=== PATIENT | male | born 1950 | race Caucasian/White ===

== ENCOUNTER 2019-12-04 02:57 | Emergency (ER) | payer OTHER, SELFPAY ==
[2019-12-04] VITALS (15 sets, daily range): BP systolic 101–168; BP diastolic 53–88; PULSE 66–115; RESP 12–22; TEMP 35.7–36.6; O2SAT 89–99
--- NOTE | ~2019-12-04 | CT_ITS ---
EXAMINATION: CT brain wo con EXAM DATE: 12/04/2019 04:51 INDICATION: Unresponsive, temporary change in awareness. TECHNIQUE: Spiral CT of the head was performed without contrast. Axial, coronal and sagittal images were reviewed. The dose-length product (DLP) for this examination was 605.33 mGy-cm. The exposure w as tailored according to patient size, and iterative reconstruction (ASIR) was used as additional dos e reduction technique. There is no prior study for comparison. FINDINGS: There is no acute intraparenchymal hemorrhage. No evidence of intraparenchymal brain mass lesion. No evidence of acute infarction. Please note that initial head CT has limited sensitivity f or small or acute infarctions. There is mild periventricular and subcortical hypodensity, nonspecific but probably related to small vessel ischemic disease. There is mild prominence of the sulci and v entricles related to cerebral atrophy. There is intracranial carotid arteriosclerosis. There are n o extra-axial collections. There is no mass effect or midline shift. The orbits are unremarkable. Soft tissue is unremarkable. The visualized sinuses and mastoid air cells are well aerated. IMPRESSION: 1. No acute intracranial findings. 2. Chronic age related findings. Reviewed, dictated and finalized at location A.
--- NOTE | ~2019-12-04 | XR_ITS ---
EXAMINATION: XR chest 1V portable EXAM DATE: 12/04/2019 04:51 INDICATION: Altered mental status. TECHNIQUE: Portable AP frontal chest x-ray was obtained. There is no prior study for comparison. FINDINGS: The lungs are clear. There are no pleural effusions. Cardiac silhouette is prominent but magnified on this AP technique. Also widened appearance to the superior mediastinum which is nonspec ific but can be seen with mediastinal fat, goiter or other anterior mediastinal mass, lymphadenopathy or aneurysm. There is no pneumothorax suspected. The bones and soft tissues are unremarkable. IMPRESSION: Widened superior mediastinum, nonspecific. Consider follow-up CT Reviewed, dictated and finalized at location A.
--- NOTE | 2019-12-04 03:02 | ECG_ITS ---
Measurements Intervals [place] Rate: 115 P: -9 UT: 163 QRS: -49 QRSD: 113 T: 69 QT: 336 QTc: 466 Interpretive Statements SINUS TACHYCARDIA LEFT ANTERIOR FASCICULAR BLOCK CANNOT RULE OUT SEPTAL INFARCT, AGE INDETERMINATE BORDERLINE ST-T WAVE ABNORMALITY- HIGH LATERAL LEADS BASELINE ARTIFACT- I, AVR ABNORMAL ECG Electronically Signed On 12-04-2019 10:35:[address] D.O.
[2019-12-04 03:16] LABS: Glucose Point of Care 141 (65-105)
[2019-12-04 03:31] LABS: Base Excess ABG -7.3 mmol/L (0-2); HCO3 ABG 18.5 mmol/L (23-29); Oxygen Content ABG 17.3 %vol (16.0-22.0); Oxygen Saturation ABG 97.8 % (95-97); Oxyhemoglobin 92.9 % (94-100); PCO2 ABG 38.8 mmHg (35-45); PO2 ABG 137.6 mmHg (75-85); Total Hemoglobin 13.1 g/dL
[2019-12-04 03:35] LABS: Basophils Absolute Auto 0.04 K/mm3 (0.00-0.10); Basophils Percent Auto 0.5 % (0.0-1.0); Eosinophils Absolute Auto 0.38 K/mm3 (0.02-0.50); Eosinophils Percent Auto 5.2 % (1.0-6.0); Hematocrit 34.8 % (37.0-46.0); Hemoglobin 11.9 g/dL (12.4-15.3); Immature Granulocyte Absolute 0.04 K/mm3 (0.00-0.00); Immature Granulocyte Percent A 0.5 % (0.0-0.0); Lymphocytes Absolute Auto 2.19 K/mm3 (1.10-4.50); Lymphocytes Percent Auto 29.8 % (18.0-42.0); Mean Corpuscular HGB Conc 34.2 g/dL (32.0-36.0); Mean Corpuscular Hemoglobin 32.1 pg (27.0-31.0); Mean Corpuscular Volume 93.8 fL (78.0-102.0); Mean Platelet Volume 8.5 fl (8.7-11.0); Monocytes Absolute Auto 0.55 K/mm3 (0.10-0.90); Monocytes Percent Auto 7.5 % (2.0-11.0); Neutrophils Absolute Auto 4.2 K/mm3 (1.7-7.2); Neutrophils Percent Auto 56.5 % (50.0-70.0); Platelet Count Result 184 K/mm3 (150-420); Red Blood Count 3.71 M/mm3 (4.70-6.10); Red Cell Distribution Width 12.1 % (11.6-14.4); White Blood Count 7.4 K/mm3 (4.8-10.8)
[2019-12-04 03:37] LABS: Modified Allen's Test Pass; Site Drawn RIGHT BRACHIAL
[2019-12-04 03:38] LABS: Device AMBU BAG
[2019-12-04 03:47] LABS: Appearance Urine Clear (Clear); Bilirubin Urine Negative (Negative); Color Urine Yellow (Yellow); Glucose Urine UA Negative (Negative); Ketones Urine Negative (Negative); Leukocyte Esterase Ur Negative LEU/UL (Negative); Nitrate Urine Negative (Negative); Protein Urine Negative (Negative); Specific Grav Ur <= 1.005 (1.010-1.020); Urobilinogen Urine 0.2 mg/dL (0.2-1.0)
[2019-12-04 03:48] LABS: INR 1.1; Partial Thromboplastin Time 29.2 SEC (22.3-31.6); Prothrombin Time 11.6 Seconds (9.64-11.0)
[2019-12-04 03:51] LABS: Acetaminophen 2 ug/mL (10-30); Alanine Aminotransferase 24 U/L (16-63); Albumin Level 3.4 g/dL (3.4-5.0); Alkaline Phosphatase 55 U/L (46-116); Anion Gap 11 mmol/L (8-16); Aspartate Amino Transferase 18 U/L (15-37); Bilirubin,Total 0.4 mg/dL (0.00-1.00); Blood Urea Nitrogen 13 mg/dL (7-18); Calcium 8.3 mg/dL (8.5-10.1); Carbon Dioxide 25 mmol/L (21-32); Chloride 98 mmol/L (98-108); Creatine Kinase 98 U/L (39-308); Estimated CRCL calculation 74 ml/min; Estimated Glomerular Filt Rate > 60; Ethanol 119 mg/dL (0-6); Glucose 155 mg/dL (70-99); Magnesium 1.1 mg/dL (1.8-2.4); Osmolality Calculated 281 mOsm/kg (285-295); Phosphorus 4.9 mg/dL (2.6-4.7); Salicylate 3.2 mg/dL (2.8-20.0); Sodium 134 mmol/L (136-145); Total Protein 6.3 g/dL (6.4-8.2)
[2019-12-04 03:52] LABS: Ammonia < 10 umol/L (11-32)
[2019-12-04 03:53] LABS: Add Urine Microscopic? YES; Bacteria Urine None seen /hpf; Blood Urine Trace-Intact (Negative); RBC Urine 0-2 /hpf (0-2); Squamous Epithelial Cell Urine None seen /hpf (Few); WBC Urine 0-3 /hpf (0-3)
[2019-12-04] MEDS: SODIUM CHLORIDE 0.9% IV 1,000 ML 999 ML IV CONT ×2 (03:54→04:44)
[2019-12-04 03:57] LABS: Lactic Acid Reflex 4.3 mmol/L (0.4-2.0)
[2019-12-04 04:03] LABS: Amphetamine Screen Urine Negative (Negative); Barbiturate Screen Urine Negative (Negative); Benzodiazepines Screen Urine Negative (Negative); Cannabinoid Screen Urine Positive (Negative); Cocaine Screen Urine Negative (Negative); Methadone Screen Urine Negative (Negative); Opiate Screen Urine Negative (Negative); Phencyclidine Screen Urine Negative (Negative)
--- NOTE | 2019-12-04 04:19 | ED.OVERDOSE ---
HPI - Overdose General Chief Complaint: Overdose Stated Complaint: overdose Time Seen by Provider: 12/04/19 03:02 Source: patient Mode of arrival: EMS Limitations: altered mental status History of Present Illness HPI Narrative: 69-year-old man with a history of chronic back pain, chronic headaches, depression, and suicidality brought to the emergency department by EMS after his saw him collapse to the floor. Came to bed after having smoked marijuana in the morning and drank alcohol most of the day telling her that he had taken 25 pills. He did not identify which ones. He had slurred speech and tried to get up and fell on the floor. She does not know what medications he took. complaint: intentional overdose Onset (ago): hour(s) Intent: suicide attempt How Overdose Was Discovered: family/friend present at time Context: Intentional Overdose: drug/ETOH problems Context: Accidental Overdose: was drinking then took pills Associated symptoms: depression Treatments Prior to Arrival: narcan (2 mg) and IV fluids Related Data Home Medications Medication Instructions Recorded Confirmed amlodipine 10 mg PO DAILY 12/04/19 12/04/19 atorvastatin 40 mg PO DAILY 12/04/19 12/04/19 cholecalciferol (vitamin D3) 50 mcg PO DAILY 12/04/19 12/04/19 [Vitamin D3] desmopressin 0.1 mg PO BID 12/04/19 12/04/19 gabapentin 300 mg PO TID 12/04/19 12/04/19 insulin aspart U-100 [Novolog 28 unit SUBCUT BIDWMEAL 12/04/19 12/04/19 Flexpen U-100 Insulin] insulin glargine [Lantus U-100 35 unit SUBCUT DAILY 12/04/19 12/04/19 Insulin] lisinopril 20 mg PO DAILY 12/04/19 12/04/19 melatonin 3 mg PO HS PRN 12/04/19 12/04/19 metformin 1,000 mg PO BID 12/04/19 12/04/19 metoprolol tartrate 25 mg PO BID 12/04/19 12/04/19 quetiapine 100 mg PO HS 12/04/19 12/04/19 tamsulosin 0.4 mg PO DAILY 12/04/19 12/04/19 trazodone 100 mg HS PRN 12/04/19 12/04/19 venlafaxine 75 mg PO DAILY 12/04/19 12/04/19 Allergies Allergy/AdvReac Type Severity Reaction Status Date / Time No Known Allergies Allergy Verified 12/04/19 03:15 Review of Systems Review of Systems: ROS unobtainable: Yes unobtainable due to mental status [facility] Social History Social History (Updated 12/04/19 @ 05:17 by Jose Yoon MD) Smoking status: Former smoker Alcohol intake: current Substance use: current Substance use type: marijuana Living arrangements: with family Occupation/Education: occupation Exam Const: General: no acute distress Nutritional Appearance: obese Limitations: altered mental status Other: GCS 8 on arrival. Snoring respirations HENMT: Head: normal to inspection Ears: external ears normal, TM's normal bilaterally and EAC's normal Face and sinus: normal facial exam Mouth: Yes moist mucous membranes Throat: posterior oropharynx normal Eyes: Conjunctivae: conjunctivae normal Pupils: Equal, round and reactive pupils present EOM: EOMs intact bilaterally Neck: Neck: normal visual inspection and no lymphadenopathy Chest: Chest palpation & inspection: normal inspection of the chest Resp: Effort & Inspection: normal respiratory effort and labored (snoring) Auscultation: clear to auscultation bilaterally, no rales, no rhonchi and no wheezes Cardio: Rate: tachycardic Rhythm: regular rhythm Heart sounds: no murmurs GI: GI Palp: Yes Soft to palpation, No Tenderness to palpation present (GI), No Guarding due to palpation present (GI) and No Palpable mass present Skin: General skin exam: no jaundice and pallor Rashes: rash noted Neuro: General: patient oriented x3 and moves all extremities Other: Does not respond to voice but but withdraws from local pain. Extrem: General: normal to inspection and no clubbing, cyanosis or edema Course Course Emergency Course: 0600: Discussed findings with Dr. Vidal Rader, Hospitalist, General acute hospital. No telemetry beds available at present. Will discuss with Admin and they will call when bed is availab
--- NOTE | 2019-12-04 05:19 | PC.NURSE ---
Call placed to [facility] for pt[facility].
[2019-12-04 06:00] LABS: Troponin I 0.02 ng/mL (0.00-0.056)
--- NOTE | 2019-12-04 06:17 | PC.NURSE ---
ERP spoke c Dr. Rader at [facility], no tele beds available at this time, will await call back later if bed becomes available. ERP orders obtained for ER Hold until bed available for transfer. Call placed to 2nd floor for bed for ED Hold placement. Pt. sleeping, mumbles at times, VSS, informed on POC.
[2019-12-04 06:33] LABS: Reflex Lactic Acid Yes or No Add Lactic
[2019-12-04] MEDS: SODIUM CHLORIDE 0.9% IV 1,000 ML 150 ML IV CONT ×2 (06:33→13:09)
[2019-12-04] MEDS: KCL 20 MEQ/SW 100 ML 100 ML 50 MEQ IVPB (06:33)
[2019-12-04 07:57] LABS: Glucose Point of Care 141 (65-105)
[2019-12-04] MEDS: PANTOPRAZOLE SODIUM IV 40 MG VIAL IV PUSH (08:51)
[2019-12-04 09:13] LABS: Troponin I 0.02 ng/mL (0.00-0.056)
[2019-12-04 09:17] LABS: Lactic Acid 3.4 mmol/L (0.4-2.0)
--- NOTE | 2019-12-04 10:17 | PC.NURSE ---
1015 Call [facility] about bed availability in ICU. Talked to 3 people only to keep getting transferred. Finally had to leave message with Denise utilization review intake and hopefully she is working on bed placement.
--- NOTE | 2019-12-04 10:52 | PC.NURSE ---
pt in bed on left side, snoring. arouses easily. at bedside. o2 continues, ivf infusing as ordered. resp even and unlabored. able to follwing simple directions such as squeeze my hands when awakened. pt c/o dry throat. no pain
[2019-12-04 11:55] LABS: Glucose Point of Care 115 (65-105)
--- NOTE | 2019-12-04 12:27 | PC.NURSE ---
1230 Patient waking up more and conversing. here at bedside put on his CPAP machine. O2 taken off, but sats dip in to mid 80's. Oxygen @ 2l/minn.c. bled into cpap. Patient assisted with turning and repositioning in bed. Reports he took handful of quetiapine fumarate. Doses off to sleep easily, but awaken with touch and voice. States he is thirsty. Told patient and will have to get new orders for po status and IV orders.
[2019-12-04 12:37] LABS: Troponin I < 0.02 ng/mL (0.00-0.056)
--- NOTE | 2019-12-04 13:43 | PC.NURSE ---
pt more alert, able to verbalize needs. arouses easily but remains somewhat droawsy. reports to RN that he took multiple seroquel tabs last night in an attempt to kill himself. remains at bedside. she brought cpap from home and pt is wearing with 2L o2 bled in. Dr. barrios gave ok for ice chips, pt provided with some and was able to tolerate small spoon fulls of ice chips.
--- NOTE | 2019-12-04 13:43 | PC.NURSE ---
[id number] Called [facility], Utilization review/admit working on admission in the order of request. No bed availability at this time. Dr. Edwards make rounds on patient and was notified of what NEREIDA said. No new orders received.
[2019-12-04 17:08] LABS: Glucose Point of Care 124 (65-105)
--- NOTE | 2019-12-04 17:40 | PC.NURSE ---
pt has cpap back on and appears to be sleeping, in room, she will stay until 1999 then a sitter will be needed, charge nurse aware
[2019-12-04 21:28] LABS: Glucose Point of Care 137 (65-105)
--- NOTE | 2019-12-04 21:42 | PC.NURSE ---
pt appears to be sleeping, sitter in room, to return at 10am, cpap on, 02 reattached, iv running, simona to gravity
--- NOTE | 2019-12-04 23:59 | PC.NURSE ---
Patient resting in bed. Sitter at bedside. Patient wakes to name. He is alert and oriented to person and time. He is aware that he is in the hospital but he could not name the hospital or state which town he is in. He is able to follow directions this time.
[2019-12-05] VITALS (11 sets, daily range): BP systolic 120–169; BP diastolic 68–95; PULSE 65–92; RESP 14–20; TEMP 35.7–36.6; O2SAT 91–100
[2019-12-05] MEDS: SODIUM CHLORIDE 0.9% IV 1,000 ML 150 ML IV CONT ×2 (02:13→13:16)
--- NOTE | 2019-12-05 04:10 | PC.NURSE ---
Patient resting in bed. He reports back and leg pain but he refuses PRN Tylenol. Sitter remains at bedside.
--- NOTE | 2019-12-05 06:37 | PC.NURSE ---
Called the [facility] to find out if any beds were available for pt. Mendoza, the ER nurse, said we needed to talk to Celina Smith who is the admissions/utilization nurse for psych patients. Her phone number is [phone] and she can be contacted after 07:30.
--- NOTE | 2019-12-05 07:03 | PC.NURSE ---
BHARGAV Oliver from ER called regarding pt's transfer status. She said that Dr. Edwards downgraded pt from needing a telemetry bed to needing a med/psych bed at the [facility].
--- NOTE | 2019-12-05 07:12 | PC.NURSE ---
Call placed to [facility]. Pts. bed status has changed per ERP order and no longer need telemetry bed. Call placed for new bed for medical psych if available. Will call back in 30 min. to speak c intake psychologist clinical.
[2019-12-05 08:17] LABS: Glucose Point of Care 117 (65-105)
--- NOTE | 2019-12-05 08:31 | PC.NURSE ---
Call back from Celina at [facility] for psych inpt. admission. Orders received about admission process and ERP notified and call placed/transfer to 2nd floor nrsg. to speak c Charge nurse Sherrie.
[2019-12-05 09:23] LABS: Alanine Aminotransferase 27 U/L (16-63); Albumin Level 3.9 g/dL (3.4-5.0); Alkaline Phosphatase 67 U/L (46-116); Anion Gap 9 mmol/L (8-16); Aspartate Amino Transferase 18 U/L (15-37); Bilirubin,Total 1.1 mg/dL (0.00-1.00); Blood Urea Nitrogen 7 mg/dL (7-18); Calcium 8.6 mg/dL (8.5-10.1); Carbon Dioxide 29 mmol/L (21-32); Chloride 103 mmol/L (98-108); Estimated CRCL calculation 83 ml/min; Estimated Glomerular Filt Rate > 60; Glucose 131 mg/dL (70-99); Osmolality Calculated 292 mOsm/kg (285-295); Potassium 3.2 mmol/L (3.5-5.1); Sodium 141 mmol/L (136-145); Total Protein 7.5 g/dL (6.4-8.2)
[2019-12-05] MEDS: PANTOPRAZOLE SODIUM IV 40 MG VIAL IV PUSH (09:44)
--- NOTE | 2019-12-05 09:48 | PC.NURSE ---
Patient ate 100% of breakfast tray
--- NOTE | 2019-12-05 10:15 | PC.NURSE ---
Dr Pak Notified of patients current lab values. Awaiting further orders.
[2019-12-05] MEDS: KCL 20 MEQ/SW 100 ML 100 ML 50 MEQ IVPB (11:33)
[2019-12-05 11:50] LABS: Glucose Point of Care 155 (65-105)
--- NOTE | 2019-12-05 11:58 | PC.NURSE ---
Magnesium sulfate infusion completed
[2019-12-05] MEDS: MAGNESIUM SULF 2 GM/WATER 50ML 2 GM/50 ML BAG IVPB (14:45)
--- NOTE | 2019-12-05 15:02 | PHAR ---
12/06/19 - VERIFIED PT.'S OWN NOVOLOG FLEXPEN. TLS
[2019-12-05 16:50] LABS: Glucose Point of Care 110 (65-105)
[2019-12-05] MEDS: GABAPENTIN 300 MG CAPSULE PO (17:16)
[2019-12-05] MEDS: metFORMIN HCL 500 MG TABLET 1000 MG PO (17:16)
--- NOTE | 2019-12-05 18:22 | PC.NURSE ---
notified that patient's stated patient does not use Novolog pen. N.O. to d/c Novolog and continue sliding scale.
[2019-12-05] MEDS: METOPROLOL TARTRATE 25 MG TABLET PO (21:31)
[2019-12-05 21:35] LABS: Glucose Point of Care 214 (65-105)
[2019-12-05] MEDS: traZODone HCL 50 MG TABLET 100 MG BY MOUTH (23:41)
[2019-12-06] VITALS (10 sets, daily range): BP systolic 123–170; BP diastolic 76–94; PULSE 64–80; RESP 14–18; TEMP 35.5–36.6; O2SAT 93–97
--- NOTE | 2019-12-06 00:04 | PC.NURSE ---
Patient requested medication to help him sleep
--- NOTE | 2019-12-06 01:43 | PC.NURSE ---
Patient up to use toilet. Friendly and appropriate. Sitter at bedside.
--- NOTE | 2019-12-06 05:04 | PC.NURSE ---
Patient alert and oriented x4. awake and watching television. Conversation appropriate. Up to toilet without assistance.
--- NOTE | 2019-12-06 07:15 | PC.NURSE ---
Awake in bed, cooperative, jarvis patent and draining, would like removed today, will advise ER doctor, saline lock to right hand in place, denies needs, no pain, conversive, sitter at the bedside, lungs clear, no cough noted, cpap off at this time, watching TV
[2019-12-06 07:28] LABS: Glucose Point of Care 120 (65-105)
--- NOTE | 2019-12-06 08:24 | PC.NURSE ---
Roy discontinued, tolerated well, advised would need to void in urinal so we can monitor out put, sitter at the bedside
[2019-12-06 09:22] LABS: Anion Gap 12 mmol/L (8-16); Blood Urea Nitrogen 10 mg/dL (7-18); Calcium 8.8 mg/dL (8.5-10.1); Carbon Dioxide 27 mmol/L (21-32); Chloride 99 mmol/L (98-108); Estimated CRCL calculation 73 ml/min; Estimated Glomerular Filt Rate > 60; Glucose 212 mg/dL (70-99); Osmolality Calculated 291 mOsm/kg (285-295); Potassium 3.2 mmol/L (3.5-5.1); Sodium 138 mmol/L (136-145)
[2019-12-06] MEDS: DESMOPRESSIN ACETATE 0.1 MG TABLET PO ×2 (09:27→16:48)
[2019-12-06] MEDS: PANTOPRAZOLE SODIUM IV 40 MG VIAL IV PUSH (09:27)
[2019-12-06] MEDS: VENLAFAXINE HCL XR 75 MG CAP.ER.24H PO (09:29)
[2019-12-06] MEDS: CHOLECALCIFEROL 1,000 UNITS TABLET 2000 UNITS PO (09:29)
[2019-12-06] MEDS: metFORMIN HCL 500 MG TABLET 1000 MG PO ×2 (09:30→16:48)
[2019-12-06] MEDS: METOPROLOL TARTRATE 25 MG TABLET PO ×2 (09:30→20:27)
[2019-12-06] MEDS: TAMSULOSIN HCL 0.4 MG CAPSULE PO (09:31)
[2019-12-06] MEDS: GABAPENTIN 300 MG CAPSULE PO ×3 (09:31→16:48)
[2019-12-06] MEDS: amLODIPine BESYLATE 5 MG TABLET 10 MG PO (09:31)
[2019-12-06] MEDS: ATORVASTATIN 40 MG TABLET PO (09:31)
[2019-12-06] MEDS: lisinopriL 20 MG TABLET PO (09:32)
[2019-12-06] MEDS: INSULIN GLARGINE (*BKC) 100 UNITS/ML 35 UNITS SUB-Q (09:34)
[2019-12-06 09:45] LABS: Lactic Acid 1.8 mmol/L (0.4-2.0)
--- NOTE | 2019-12-06 11:33 | PC.NURSE ---
Spoke to Jake sweet with [facility], patient information given, he stated he will be sending some one over soon to evaluate the patient.
[2019-12-06 11:38] LABS: Glucose Point of Care 203 (65-105)
--- NOTE | 2019-12-06 11:40 | PC.NURSE ---
Dr Yoon in to speak with and patient regarding options, [facility], continue as ER hold at this time,
--- NOTE | 2019-12-06 13:08 | PC.NURSE ---
Resting in bed, at the bedside, no distress noted, ate well for lunch
--- NOTE | 2019-12-06 13:24 | PM.EVENT ---
Event Note Event Note Event Note: Examined the patient this morning at approximately 9:15 a.m. Patient is tolerating p.o. fluids and solid foods and is in good spirits. He denies any discomfort, jitteriness, sweating, tremulousness, shortness of breath, nausea, vomiting, diarrhea, abdominal pain or chest pain. Does not recall the events of the night when he was admitted. The patient and his state that he took over 25 tablets of quetiapine before admission on the . patient's home medications have been restarted save his quetiapine. Vital signs are stable and normal. PEERL mucous membranes moist. Cardiovascular: Regular rate rhythm without murmur or gallop. Pulmonary: Lungs clear to auscultation bilaterally. No respiratory distress. Extremities are warm dry and pink. Current issues: 1. Suicide attempt by pill ingestion: Patient is medically cleared for psychiatric admission. Patient is cooperative and amenable to inpatient therapy. 2. Alcohol abuse: Patient denies any symptoms of withdrawal at present. Substance abuse treatment should be part of his overall treatment plan. 3. Mild hypokalemia: Oral replacement therapy, KCL 40 mEq b.i.d..
--- NOTE | 2019-12-06 13:54 | PC.NURSE ---
Assisted up to shower, will be present for shower process, saline lock covered with glove for shower
[2019-12-06 14:11] LABS: SARS-CoV-2 RNA PCR Negative
--- NOTE | 2019-12-06 14:29 | PC.NURSE ---
Resting in bed, tolerated shower well, remains at the bedside
--- NOTE | 2019-12-06 15:32 | PC.NURSE ---
Jake kee completed eval, no beds [facility] at [facility], will remain ER hold at this time until bed becomes available
[2019-12-06] MEDS: POTASSIUM CHLORIDE 20 MEQ PACKET (FOR LIQUID) 40 MEQ PO (16:49)
[2019-12-06 16:52] LABS: Glucose Point of Care 121 (65-105)
--- NOTE | 2019-12-06 17:29 | PC.NURSE ---
Sat on edge of bed to eat dinner, remains in room at all times
--- NOTE | 2019-12-06 17:32 | PC.NURSE ---
talked with bindu sweet. [facility] has an open male bed and paperwork faxed as requestede.
--- NOTE | 2019-12-06 18:11 | PC.NURSE ---
Ate well for dinner, at the bedside, states would like to bring him some food in states didn't feel like he got enough food for dinner
[2019-12-06 20:01] LABS: Thyroid Stimulating Hormone Reflex 0.81 u/IU/mL (0.36-3.74)
[2019-12-06] MEDS: traZODone HCL 50 MG TABLET 100 MG BY MOUTH (20:27)
[2019-12-06] MEDS: MELATONIN 3 MG TABLET PO (20:27)
--- NOTE | 2019-12-06 20:52 | PC.NURSE ---
[facility] in [place], [place] has accepted patient per JOE at facility. MD vinson. Nurse to work on transportation.
[2019-12-06 20:57] LABS: Glucose Point of Care 106 (65-105)
--- NOTE | 2019-12-06 21:56 | PC.NURSE ---
IV removed. Catheter removed intact.
== END 2019-12-06 21:44 | disposition short-term general hospital (02) ==
LOC: CHSED 05:19 → CHS2ND 07:36
PROVIDERS: Emergency Medicine; Emergency Provider Emergency Medicine
DX: T14.91XA Suicide attempt, initial encounter (principal); T50.902A Poisoning by unspecified drugs, medicaments and biological substances, intentional self-harm, initial encounter; F10.20 Alcohol dependence, uncomplicated; R41.82 Altered mental status, unspecified; E87.6 Hypokalemia; Z87.891 Personal history of nicotine dependence; Z79.899 Other long term (current) drug therapy; Z20.828 Contact with and (suspected) exposure to other viral communicable diseases
CPT/HCPCS: 36415; 36600; 70450; 71045; 80048; 80053; 80307; 81001; 82140; 82550; 82805; 82948; 83605; 83735; 83930; 84100; 84443; 84484; 85025; 85610; 85730; 87635; 93005; 96361; 96365; 96366; 96375; 96376; 99283; 99285; A9270; C9113; C9803; J1815; J3475; J3480; J7030; U0003

== ENCOUNTER 2024-11-27 00:30 | Inpatient (IN) | payer MEDICARE, SELFPAY ==
[2024-11-27] VITALS (28 sets, daily range): BP systolic 107–147; BP diastolic 54–76; PULSE 67–95; RESP 18–33; TEMP 36.6–39.4; O2SAT 89–98; BMI 34.2
--- NOTE | ~2024-11-27 | CT_ITS ---
Non-contrast Head CT History: Dizziness Technique: Axial non-contrast imaging of the brain was performed. Dose reduction technique was used on this scan by utilizing automated exposure control and iterative reconstruction technique. The dose-length product (DLP) was 681.00 mGy-cm. Findings: There is no evidence of intracranial hemorrhage, mass lesion, or acute infarct. Brain parenchyma appears normal. The ventricles and subarachnoid spaces are normal in size. The calvarium appears normal. The visualized paranasal sinuses and mastoid air cells are clear. Impression: No significant abnormality seen. Reviewed, dictated and finalized at location . Impression: No significant abnormality seen.
--- NOTE | ~2024-11-27 | CT_ITS ---
Clinical Indication: Shortness of breath, cough CT Scan of the Chest, Abdomen, and Pelvis with Contrast: Technique: Contiguous sections were acquired throughout the chest, abdomen, and pelvis after intravenous administration of 100 cc of Omnipaque 350. Dose reduction technique was used on this scan by utilizing automated exposure control and iterative reconstruction technique. The dose-length product (DLP) was 2311.93 mGy-cm. Findings: There is no evidence of any significant mediastinal, hilar or axillary lymphadenopathy. The mediastinal soft tissues and vascular structures appear normal. No pericardial effusion. There are minimal bilateral pleural effusions with minimal bibasilar atelectatic change. The liver, spleen, pancreas, adrenals and kidneys are within normal limits. Calcified gallstone present. There are atherosclerotic calcifications of the aorta. No lymphadenopathy. No bowel obstruction or bowel wall thickening. There is no evidence to suggest acute appendicitis. Suspected urinary bladder wall thickening versus underdistention. Prostate gland is enlarged. Impression: No definite pulmonary embolus identified. Suspected cystitis. Correlate with urinalysis. Minimal bilateral pleural effusions with mild bibasilar atelectatic change. Cholelithiasis. Enlarged prostate gland. Reviewed, dictated and finalized at [facility]. Impression: No definite pulmonary embolus identified. Suspected cystitis. Correlate with urinalysis. Minimal bilateral pleural effusions with mild bibasilar atelectatic change. Cholelithiasis. Enlarged prostate gland.
--- NOTE | ~2024-11-27 | XR_ITS ---
Clinical Indication: Shortness of breath, cough, fever PA and lateral views of the chest: Comparison: 12/04/2019 Findings: The lungs are clear, without evidence of focal consolidation or pleural effusion. Cardiomediastinal silhouette is within normal limits. Bones and soft tissues are unremarkable. Impression: Clear lungs. Reviewed, dictated and finalized at location . Impression: Clear lungs.
--- NOTE | 2024-11-27 00:54 | ECG_ITS ---
Test Date: 2024-11-27 01:43:24 Measurements Intervals [place] Rate: 77 P: 1 SD: 213 QRS: -31 QRSD: 121 T: 63 QT: 393 QTc: 447 Interpretive Statements SINUS RHYTHM WITH FIRST DEGREE AV BLOCK LEFT AXIS DEVIATION INTRAVENTRICULAR CONDUCTION DELAY CANNOT R/O SEPTAL INFARCT, AGE INDETERMINATE BORDERLINE ST-T WAVE ABNORMALITY- HIGH LATERAL LEADS BASELINE ARTIFACT- II, III, AVR, AVL, AVF ABNORMAL ECG No previous ECG available for comparison Electronically Signed On 11-27-2024 06:17:[address] D.O.
--- NOTE | 2024-11-27 01:03 | ED.GENADULT ---
HPI - General Adult General Chief complaint: Shortness of Breath/Dyspnea <Virginia Zimmer PA-C - Last Filed: 11/27/24 03:32> Stated complaint: GEN WKNS, FALL, FEVER, LOW O2 <FILOMENA Whitley Last Filed: 11/27/24 03:32> Time Seen by Provider: 11/27/24 00:38 <FILOMENA Whitley Last Filed: 11/27/24 03:32> Source: patient, family and EMS <FILOMENA Whitley Last Filed: 11/27/24 03:32> Mode of arrival: EMS <FILOMENA Whitley Last Filed: 11/27/24 03:32> Limitations: no limitations <FILOMENA Whitley Last Filed: 11/27/24 03:32> History of Present Illness HPI narrative: Patient is a 74-year-old male, with past medical history of schizophrenia, diabetes, hypertension, who presents the ED via EMS with report of weakness, shortness of breath. Patient reports he has had a intermittently productive cough for the past 2 weeks. Has been feeling short of breath, worse with exertion. Tonight became very lightheaded, worse with movements, and reported generalized weakness. reports that he was attempting to ambulate and his legs could no longer hold him and he gentlycollapsed to the ground. He did not fall or injure himself. called for EMS. EMS noted that patient was febrile and hypoxic. Placed him on 2 L nasal cannula. Patient denies previous oxygen requirement. Denies current chest pain. Denies pain or swelling in his legs. Denies focal numbness or weakness. Denies known fevers at home. Patient notes he straight caths himself 4x per day. Has had some hematuria over past few days. reports patient's blood sugar was very elevated a few days ago. <FILOMENA Whitley Last Filed: 11/27/24 03:32> Related Data Home medications: Home Medications ?Medication ?Instructions ?Recorded ?Confirmed ?Last Taken ?Type amlodipine 10 mg tablet 10 mg PO DAILY 12/04/19 12/04/19 Unknown History atorvastatin 80 mg tablet 40 mg PO DAILY 12/04/19 12/04/19 Unknown History cholecalciferol (vitamin D3) 50 50 mcg PO DAILY 12/04/19 12/04/19 Unknown History mcg (2,000 unit) tablet (Vitamin D3) desmopressin 0.1 mg tablet 0.1 mg PO BID 12/04/19 12/04/19 Unknown History gabapentin 300 mg capsule 300 mg PO TID 12/04/19 12/04/19 Unknown History insulin aspart U-100 100 unit/mL 28 unit subcut BIDWMEAL 12/04/19 12/04/19 Unknown History (3 mL) subcutaneous pen (Novolog FlexPen U-100 Insulin aspart) insulin glargine 100 unit/mL 35 unit subcut DAILY 12/04/19 12/04/19 Unknown History subcutaneous solution (Lantus U-100 Insulin) lisinopril 40 mg tablet 20 mg PO DAILY 12/04/19 12/04/19 Unknown History melatonin 3 mg tablet 3 mg PO HS PRN Sleep 12/04/19 12/04/19 Unknown History metformin 1,000 mg tablet 1,000 mg PO BID 12/04/19 12/04/19 Unknown History metoprolol tartrate 25 mg tablet 25 mg PO BID 12/04/19 12/04/19 Unknown History quetiapine 200 mg tablet 100 mg PO HS 12/04/19 12/04/19 Unknown History tamsulosin 0.4 mg capsule 0.4 mg PO DAILY 12/04/19 12/04/19 Unknown History trazodone 100 mg tablet 100 mg HS PRN Sleep 12/04/19 12/04/19 Unknown History venlafaxine 75 mg capsule,extended 75 mg PO DAILY 12/04/19 12/04/19 Unknown History release 24 hr <Virginia Zimmer PA-C - Last Filed: 11/27/24 03:32> Allergies/adverse reactions: Allergies Allergy/AdvReac Type Severity Reaction Status Date / Time No Known Allergies Allergy Verified 12/04/19 03:15 <Virginia Zimmer PA-C - Last Filed: 11/27/24 03:32> Review of Systems Review of Systems: All systems reviewed & are unremarkable except as noted in HPI. <JUANITA WhitleyC - Last Filed: 11/27/24 03:32> All systems reviewed & are unremarkable except as noted in HPI and below <Virginia Zimmer PA-C - Last Filed: 11/27/24 03:32> [facility] Past Medical History Medical History: Medical History (Updated 11/27/24 @ 04:27 by Austin De La Cruz MD) T2DM (type 2 diabetes mellitus) BPH (benign prostatic hyperplasia) Hyperlipidemia HTN (hypertension) Depression Suicidal thoughts <Virginia Zimmer PA-C - Last Filed: 11/27/24 03:32> Surgical History Surgical History: Surgical History Pituitary tumor History of trauma of chest <Virginia Zimmer PA-C - Last Filed: 11/27/24 03:32> Social History Social History: Social History Smoking status: Former smoker Alcohol intake: current Substance use: current Substance use type: marijuana Living arrangements: with family Occupation/Education: occupation <FILOMENA Whitley Last Filed: 11/27/24 03:32> Exam Narrative: GENERAL: Elderly, ill-appearing, obese with BMI of 34.0, non-toxic, in no acute distress. HEAD: Normocephalic, atraumatic. RESPIRATORY: Airway patent, respirations tachypneic. Decreased lung sounds bases lonnie. Rhonchi in bases. No wheezing. CARDIOVASCULAR: Regular rate and rhythm without murmurs, rubs, or gallops. ABDOMINAL: Soft, nontender, nondistended. Normoactive BS. MUSCULOSKELETAL: Moves all extremities. No gross deformities. SKIN: Warm, dry, normal color. NEURO: A&O X3. Speech clear. Cranial nerves II-XII grossly intact. Steady gait. No ataxic movements. No focal deficits. PSYCHIATRIC: Appropriate mood and affect. Normal interaction. <Virginia Zimmer PA-C - Last Filed: 11/27/24 03:32> Course [employer]/PA Physician Supervision This visit was performed by both a physician and an APC. I performed all aspects of the MDM as documented. <Austin De La Cruz MD - Last Filed: 11/27/24 04:27> Vital Signs Vital signs: Vital Signs Pulse Rate 85 11/27/24 00:41 Respiratory Rate 25 H 11/27/24 00:41 Blood Pressure 113/61 11/27/24 00:41 Pulse Oximetry 97 11/27/24 00:41 Temperature 99 F 11/27/24 04:15 Pulse Rate 82 11/27/24 01:19 Respiratory Rate 32 H 11/27/24 01:01 Blood Pressure 129/64 11/27/24 01:01 Pulse Oximetry 97 11/27/24 01:50 Oxygen Delivery Nasal Cannula 11/27/24 01:50 Oxygen Flow Rate 2 11/27/24 01:50 <Virginia Zimmer PA-C - Last Filed: 11/27/24 03:32> Vital Signs Pulse Rate 85 11/27/24 00:41 Respiratory Rate 25 H 11/27/24 00:41 Blood Pressure 113/61 11/27/24 00:41 Pulse Oximetry 97 11/27/24 00:41 Temperature 99 F 11/27/24 04:15 Pulse Rate 82 11/27/24 01:19 Respiratory Rate 32 H 11/27/24 01:01 Blood Pressure 129/64 11/27/24 01:01 Pulse Oximetry 97 11/27/24 01:50 Oxygen Delivery Nasal Cannula 11/27/24 01:50 Oxygen Flow Rate 2 11/27/24 01:50 <Austin De La Cruz MD - Last Filed: 11/27/24 04:27> Medical Decision Making MDM Narrative Medical decision making narrative: Patient presented to ED with report of weakness, lightheadedness, shortness breath, recent cough. Found to be hypoxic by EMS. Placed on 2 L nasal cannula. Denies previous oxygen requirement. Patient noted to be febrile here to 100.5? F. sepsis workup was initiated. Fluids and Tylenol given. Cbc without leukocytosis. Does show stable H&H. Normal platelets. CMP with sodium 132, creatinine 1.32. No recent records to compare to. Fluids are ongoing. Blood glucose slightly elevated to 170. No evidence of DKA. Initial lactic acid 4.0. Will continue to trend. Magnesium was low 1.3. Given 2 g IV replacement. Normal LFTs. Inflammatory markers are elevated EKG with sinus rhythm. No concerning ST changes. Baseline troponin 0.016. Denying current chest pain. UA concerning for infection. Sent for culture. Viral swabs negative Chest x-ray interpreted by myself concerning for focal infiltrates. Patient started on Rocephin and azithromycin. Blood cultures were obtained. D-dimer did result elevated at 4.58 CT brain negative CTA of chest with abdomen/pelvis was obtained. Care signed out to Dr. De La Cruz at shift change pending stat rad imaging results and admission. Did discuss case with Dr. Aleman, hospitalist, accepted for admission pending imaging results. <Virginia Zimmer PA-C - Last Filed: 11/27/24 03:32> Patient presented to ED with report of weakness, lightheadedness, shortness breath, recent cough. Found to be hypoxic by EMS. Placed on 2 L nasal cannula. Denies previous oxygen requirement. Patient noted to be febrile here to 100.5? F. sepsis workup was initiated. Fluids and Tylenol given. Cbc without leukocytosis. Does show stable H&H. Normal platelets. CMP with sodium 132, creatinine 1.32. No recent records to compare to. Fluids are ongoing. Blood glucose slightly elevated to 170. No evidence of DKA. Initial lactic acid 4.0. Will continue to trend. Magnesium was low 1.3. Given 2 g IV replacement. Normal LFTs. Inflammatory markers are elevated EKG with sinus rhythm. No concerning ST changes. Baseline troponin 0.016. Denying current chest pain. UA concerning for infection. Sent for culture. Viral swabs negative Chest x-ray interpreted by myself concerning for focal infiltrates. Patient started on Rocephin and azithromycin. Blood cultures were obtained. D-dimer did result elevated at 4.58 CT brain negative CTA of chest with abdomen/pelvis was obtained. Care signed out to Dr. De La Cruz at shift change pending stat rad imaging results and admission. Did discuss case with Dr. Aleman, hospitalist, accepted for admission pending imaging results. This visit was performed by both a physician and an APC. I performed all aspects of the MDM as documented. patient was started on heparin bolus and infusion for the pulmonary embolism. Critical Care Procedure Note Authorized and Performed by: Austin De La Cruz Total critical care time: Approximately 36 minutes Due to a high probability of clinically significant, life threatening deterioration, the patient required my highest level of preparedness to intervene emergently and I personally spent this critical care time directly and personally managing the patient. This critical care time included obtaining a history; examining the patient; pulse oximetry; ordering and review of studies; arranging urgent treatment with development of a management plan; evaluation of patient's response to treatment; frequent reassessment; and, discussions with other providers. This critical care time was performed to assess and manage the high probability of imminent, life-threatening deterioration that could result in multi-organ failure. It was exclusive of separately billable procedures and treating other patients and teaching time. Please see MDM section and the rest of the note for further information on patient assessment and treatment. <Austin De La Cruz MD - Last Filed: 11/27/24 04:27> Medical Records Medical records reviewed: Yes I reviewed the external patient's medical records. <Virginia Zimmer PA-C - Last Filed: 11/27/24 03:32> Vital Signs Vital Signs: Vital Signs Pulse Rate 85 11/27/24 00:41 Respiratory Rate 25 H 11/27/24 00:41 Blood Pressure 113/61 11/27/24 00:41 Pulse Oximetry 97 11/27/24 00:41 Temperature 99 F 11/27/24 04:15 Pulse Rate 82 11/27/24 01:19 Respiratory Rate 32 H 11/27/24 01:01 Blood Pressure 129/64 11/27/24 01:01 Pulse Oximetry 97 11/27/24 01:50 Oxygen Delivery Nasal Cannula 11/27/24 01:50 Oxygen Flow Rate 2 11/27/24 01:50 <Virginia Zimmer PA-C - Last Filed: 11/27/24 03:32> Vital Signs Pulse Rate 85 11/27/24 00:41 Respiratory Rate 25 H 11/27/24 00:41 Blood Pressure 113/61 11/27/24 00:41 Pulse Oximetry 97 11/27/24 00:41 Temperature 99 F 11/27/24 04:15 Pulse Rate 82 11/27/24 01:19 Respiratory Rate 32 H 11/27/24 01:01 Blood Pressure 129/64 11/27/24 01:01 Pulse Oximetry 97 11/27/24 01:50 Oxygen Delivery Nasal Cannula 11/27/24 01:50 Oxygen Flow Rate 2 11/27/24 01:50 <Austin De La Cruz MD - Last Filed: 11/27/24 04:27> Lab Data Lab results reviewed: Yes I reviewed the patient's lab results. <Virginia Zimmer PA-C - Last Filed: 11/27/24 03:32> Result diagrams: 11/27/24 01:13 11/27/24 01:14 <Virginia Zimmer PA-C - Last Filed: 11/27/24 03:32> Labs: Lab Results 11/27/24 11/27/24 11/27/24 Range/Units 00:54 01:12 01:13 WBC 9.6 (4.5-10.0) K/mm3 RBC 3.78 L (4.6-6.20) M/mm3 Hgb 11.6 L (14.0-18.0) g/dL Hct 34.9 L (42.0-52.0) % MCV 92.3 (80-100) fl MCH 30.7 (26-34) pg MCHC 33.2 (32-36) g/dl RDW 12.5 (11.5-14.5) % Plt Count 206 (150-375) k/mm3 MPV 9.6 (7.4-10.4) fl Immature Gran % (Auto) 0.8 H (0-0.5) % Neut % (Auto) 78.4 H (45.5-73.1) % Lymph % (Auto) 12.4 L (18.3-44.2) % [place] % (Auto) 7.9 (2.6-8.5) % Eos % (Auto) 0.0 (0-4.4) % Baso % (Auto) 0.5 (0.2-1.2) % Lymph # (Auto) 1.19 (0.9-3.2) K/mm3 [place] # (Auto) 0.8 H (0.1-0.6) K/mm3 Eos # (Auto) 0.0 (0-0.3) K/mm3 Baso # (Auto) 0.1 (0.0-0.1) K/mm3 Abs Immat Gran (auto) 0.08 H (0.00-0.031) K/mm3 Absolute Neuts (auto) 7.6 H (1.3-6.7) K/mm3 Absolute Nucleated RBC 0.000 (0.0-0.012) K/mm3 Nucleated RBC % 0.0 (0.0-0.2) % PT 15.8 H (11.1-14.7) Seconds INR 1.2 APTT 34.3 (22.3-36.8) Seconds D-Dimer 4.58 H (<0.48) ug/mL Methemoglobin 0.2 (0-1.5) %THb Sodium (137-145) mmol/L Potassium (3.4-5.0) mmol/L Chloride (98-107) mmol/L Carbon Dioxide (22-30) mmol/L Anion Gap (4-12) mmol/L BUN (9-20) mg/dL Creatinine (0.7-1.3) mg/dL Estim Creat Clear Calc ml/min Estimated GFR (59 - ) Glucose (65-110) mg/dL Lactic Acid 4.0 H (0.7-2.0) mmol/L Calcium (8.4-10.2) mg/dL Magnesium (1.6-2.3) mg/dL Total Bilirubin (0.2-1.3) mg/dL AST (17-59) U/L ALT (6-50) U/L Alkaline Phosphatase (38-126) U/L Troponin I (0.000-0.034) ng/mL C-Reactive Protein (<1.0) mg/dL NT-Pro-B Natriuret Pep (19.9-100) pg/mL Total Protein (6.3-8.2) g/dL Albumin (3.5-5.1) g/dL Urine Color (Yellow) Urine Appearance (Clear) Urine pH (5.0-9.0) Ur Specific [place] (1.001-1.035) Urine Protein (Negative) mg/dL Urine Glucose (UA) (Negative) mg/dL Urine Ketones (Negative) mg/dL Ur Blood (Man) (Negative) Urine Nitrate (Negative) Urine Bilirubin (Negative) Urine Urobilinogen (<2.0) mg/dL Add Ur Microanalysis Leukocyte Esterase Rfl (Negative) SUDHIR/UL Urine RBC (0-2) /hpf Urine WBC (0-3) /hpf Ur Squamous Epith Cells (Few) /hpf Urine Bacteria /hpf Urine Casts Influenza A (RT-PCR) Negative (Negative) Influenza B (RT-PCR) Negative (Negative) RSV (RT-PCR) Negative (Negative) SARS-CoV-2 RNA (RT-PCR) Negative (Negative) 11/27/24 11/27/24 Range/Units 01:14 02:12 WBC (4.5-10.0) K/mm3 RBC (4.6-6.20) M/mm3 Hgb (14.0-18.0) g/dL Hct (42.0-52.0) % MCV (80-100) fl MCH (26-34) pg MCHC (32-36) g/dl RDW (11.5-14.5) % Plt Count (150-375) k/mm3 MPV (7.4-10.4) fl Immature Gran % (Auto) (0-0.5) % Neut % (Auto) (45.5-73.1) % Lymph % (Auto) (18.3-44.2) % [place] % (Auto) (2.6-8.5) % Eos % (Auto) (0-4.4) % Baso % (Auto) (0.2-1.2) % Lymph # (Auto) (0.9-3.2) K/mm3 [place] # (Auto) (0.1-0.6) K/mm3 Eos # (Auto) (0-0.3) K/mm3 Baso # (Auto) (0.0-0.1) K/mm3 Abs Immat Gran (auto) (0.00-0.031) K/mm3 Absolute Neuts (auto) (1.3-6.7) K/mm3 Absolute Nucleated RBC (0.0-0.012) K/mm3 Nucleated RBC % (0.0-0.2) % PT (11.1-14.7) Seconds INR APTT (22.3-36.8) Seconds D-Dimer (<0.48) ug/mL Methemoglobin (0-1.5) %THb Sodium 132 L (137-145) mmol/L Potassium 4.0 (3.4-5.0) mmol/L Chloride 102 (98-107) mmol/L Carbon Dioxide 22 (22-30) mmol/L Anion Gap 8 (4-12) mmol/L BUN 12 (9-20) mg/dL Creatinine 1.32 H (0.7-1.3) mg/dL Estim Creat Clear Calc 62 ml/min Estimated GFR 53 L (59 - ) Glucose 170 H (65-110) mg/dL Lactic Acid (0.7-2.0) mmol/L Calcium 8.4 (8.4-10.2) mg/dL Magnesium 1.3 L (1.6-2.3) mg/dL Total Bilirubin 0.8 (0.2-1.3) mg/dL AST 45 (17-59) U/L ALT 44 (6-50) U/L Alkaline Phosphatase 68 (38-126) U/L Troponin I 0.016 (0.000-0.034) ng/mL C-Reactive Protein 15.7 H (<1.0) mg/dL NT-Pro-B Natriuret Pep 862 H (19.9-100) pg/mL Total Protein 6.6 (6.3-8.2) g/dL Albumin 3.6 (3.5-5.1) g/dL Urine Color Dark yellow (Yellow) Urine Appearance Cloudy H (Clear) Urine pH 5.5 (5.0-9.0) Ur Specific [place] 1.023 (1.001-1.035) Urine Protein 3+ H (Negative) mg/dL Urine Glucose (UA) Negative (Negative) mg/dL Urine Ketones 1+ H (Negative) mg/dL Ur Blood (Man) 2+ H (Negative) Urine Nitrate Positive H (Negative) Urine Bilirubin 1+ H (Negative) Urine Urobilinogen 4.0 H (<2.0) mg/dL Add Ur Microanalysis Reviewed Leukocyte Esterase Rfl 2+ H (Negative) SUDHIR/UL Urine RBC >100 H (0-2) /hpf Urine WBC >100 H (0-3) /hpf Ur Squamous Epith Cells Few (Few) /hpf Urine Bacteria 4+ H /hpf Urine Casts 3-5 Influenza A (RT-PCR) (Negative) Influenza B (RT-PCR) (Negative) RSV (RT-PCR) (Negative) SARS-CoV-2 RNA (RT-PCR) (Negative) <Virginia Zimmer PA-C - Last Filed: 11/27/24 03:32> Lab Results 11/27/24 11/27/24 11/27/24 Range/Units 00:54 01:12 01:13 WBC 9.6 (4.5-10.0) K/mm3 RBC 3.78 L (4.6-6.20) M/mm3 Hgb 11.6 L (14.0-18.0) g/dL Hct 34.9 L (42.0-52.0) % MCV 92.3 (80-100) fl MCH 30.7 (26-34) pg MCHC 33.2 (32-36) g/dl RDW 12.5 (11.5-14.5) % Plt Count 206 (150-375) k/mm3 MPV 9.6 (7.4-10.4) fl Immature Gran % (Auto) 0.8 H (0-0.5) % Neut % (Auto) 78.4 H (45.5-73.1) % Lymph % (Auto) 12.4 L (18.3-44.2) % [place] % (Auto) 7.9 (2.6-8.5) % Eos % (Auto) 0.0 (0-4.4) % Baso % (Auto) 0.5 (0.2-1.2) % Lymph # (Auto) 1.19 (0.9-3.2) K/mm3 [place] # (Auto) 0.8 H (0.1-0.6) K/mm3 Eos # (Auto) 0.0 (0-0.3) K/mm3 Baso # (Auto) 0.1 (0.0-0.1) K/mm3 Abs Immat Gran (auto) 0.08 H (0.00-0.031) K/mm3 Absolute Neuts (auto) 7.6 H (1.3-6.7) K/mm3 Absolute Nucleated RBC 0.000 (0.0-0.012) K/mm3 Nucleated RBC % 0.0 (0.0-0.2) % PT 15.8 H (11.1-14.7) Seconds INR 1.2 APTT 34.3 (22.3-36.8) Seconds D-Dimer 4.58 H (<0.48) ug/mL Methemoglobin 0.2 (0-1.5) %THb Sodium (137-145) mmol/L Potassium (3.4-5.0) mmol/L Chloride (98-107) mmol/L Carbon Dioxide (22-30) mmol/L Anion Gap (4-12) mmol/L BUN (9-20) mg/dL Creatinine (0.7-1.3) mg/dL Estim Creat Clear Calc ml/min Estimated GFR (59 - ) Glucose (65-110) mg/dL Lactic Acid 4.0 H (0.7-2.0) mmol/L Calcium (8.4-10.2) mg/dL Magnesium (1.6-2.3) mg/dL Total Bilirubin (0.2-1.3) mg/dL AST (17-59) U/L ALT (6-50) U/L Alkaline Phosphatase (38-126) U/L Troponin I (0.000-0.034) ng/mL C-Reactive Protein (<1.0) mg/dL NT-Pro-B Natriuret Pep (19.9-100) pg/mL Total Protein (6.3-8.2) g/dL Albumin (3.5-5.1) g/dL Urine Color (Yellow) Urine Appearance (Clear) Urine pH (5.0-9.0) Ur Specific [place] (1.001-1.035) Urine Protein (Negative) mg/dL Urine Glucose (UA) (Negative) mg/dL Urine Ketones (Negative) mg/dL Ur Blood (Man) (Negative) Urine Nitrate (Negative) Urine Bilirubin (Negative) Urine Urobilinogen (<2.0) mg/dL Add Ur Microanalysis Leukocyte Esterase Rfl (Negative) SUDHIR/UL Urine RBC (0-2) /hpf Urine WBC (0-3) /hpf Ur Squamous Epith Cells (Few) /hpf Urine Bacteria /hpf Urine Casts Influenza A (RT-PCR) Negative (Negative) Influenza B (RT-PCR) Negative (Negative) RSV (RT-PCR) Negative (Negative) SARS-CoV-2 RNA (RT-PCR) Negative (Negative) 11/27/24 11/27/24 Range/Units 01:14 02:12 WBC (4.5-10.0) K/mm3 RBC (4.6-6.20) M/mm3 Hgb (14.0-18.0) g/dL Hct (42.0-52.0) % MCV (80-100) fl MCH (26-34) pg MCHC (32-36) g/dl RDW (11.5-14.5) % Plt Count (150-375) k/mm3 MPV (7.4-10.4) fl Immature Gran % (Auto) (0-0.5) % Neut % (Auto) (45.5-73.1) % Lymph % (Auto) (18.3-44.2) % [place] % (Auto) (2.6-8.5) % Eos % (Auto) (0-4.4) % Baso % (Auto) (0.2-1.2) % Lymph # (Auto) (0.9-3.2) K/mm3 [place] # (Auto) (0.1-0.6) K/mm3 Eos # (Auto) (0-0.3) K/mm3 Baso # (Auto) (0.0-0.1) K/mm3 Abs Immat Gran (auto) (0.00-0.031) K/mm3 Absolute Neuts (auto) (1.3-6.7) K/mm3 Absolute Nucleated RBC (0.0-0.012) K/mm3 Nucleated RBC % (0.0-0.2) % PT (11.1-14.7) Seconds INR APTT (22.3-36.8) Seconds D-Dimer (<0.48) ug/mL Methemoglobin (0-1.5) %THb Sodium 132 L (137-145) mmol/L Potassium 4.0 (3.4-5.0) mmol/L Chloride 102 (98-107) mmol/L Carbon Dioxide 22 (22-30) mmol/L Anion Gap 8 (4-12) mmol/L BUN 12 (9-20) mg/dL Creatinine 1.32 H (0.7-1.3) mg/dL Estim Creat Clear Calc 62 ml/min Estimated GFR 53 L (59 - ) Glucose 170 H (65-110) mg/dL Lactic Acid (0.7-2.0) mmol/L Calcium 8.4 (8.4-10.2) mg/dL Magnesium 1.3 L (1.6-2.3) mg/dL Total Bilirubin 0.8 (0.2-1.3) mg/dL AST 45 (17-59) U/L ALT 44 (6-50) U/L Alkaline Phosphatase 68 (38-126) U/L Troponin I 0.016 (0.000-0.034) ng/mL C-Reactive Protein 15.7 H (<1.0) mg/dL NT-Pro-B Natriuret Pep 862 H (19.9-100) pg/mL Total Protein 6.6 (6.3-8.2) g/dL Albumin 3.6 (3.5-5.1) g/dL Urine Color Dark yellow (Yellow) Urine Appearance Cloudy H (Clear) Urine pH 5.5 (5.0-9.0) Ur Specific [place] 1.023 (1.001-1.035) Urine Protein 3+ H (Negative) mg/dL Urine Glucose (UA) Negative (Negative) mg/dL Urine Ketones 1+ H (Negative) mg/dL Ur Blood (Man) 2+ H (Negative) Urine Nitrate Positive H (Negative) Urine Bilirubin 1+ H (Negative) Urine Urobilinogen 4.0 H (<2.0) mg/dL Add Ur Microanalysis Reviewed Leukocyte Esterase Rfl 2+ H (Negative) SUDHIR/UL Urine RBC >100 H (0-2) /hpf Urine WBC >100 H (0-3) /hpf Ur Squamous Epith Cells Few (Few) /hpf Urine Bacteria 4+ H /hpf Urine Casts 3-5 Influenza A (RT-PCR) (Negative) Influenza B (RT-PCR) (Negative) RSV (RT-PCR) (Negative) SARS-CoV-2 RNA (RT-PCR) (Negative) <Autsin De La Cruz MD - Last Filed: 11/27/24 04:27> ABG Data ABG results: 11/27/24 01:12 Puncture Site Right brachial ABG pH 7.481 H ABG pCO2 32.2 L ABG pO2 69.2 L ABG PO2/FiO2 Ratio 3.30 ABG HCO3 23.5 ABG O2 Saturation 95.2 ABG O2 Content 16.5 ABG Base Excess 0.6 A-a Gradient 42.0 Oxyhemoglobin 93.6 Carboxyhemoglobin 0.4 Reduced Hemoglobin 5.8 H Total Hemoglobin 12.5 O2 Delivery Device Nasal cannula O2 Liters/Min 2.0 FiO2 21 <Virginia Zimmer PA-C - Last Filed: 11/27/24 03:32> 11/27/24 01:12 Puncture Site Right brachial ABG pH 7.481 H ABG pCO2 32.2 L ABG pO2 69.2 L ABG PO2/FiO2 Ratio 3.30 ABG HCO3 23.5 ABG O2 Saturation 95.2 ABG O2 Content 16.5 ABG Base Excess 0.6 A-a Gradient 42.0 Oxyhemoglobin 93.6 Carboxyhemoglobin 0.4 Reduced Hemoglobin 5.8 H Total Hemoglobin 12.5 O2 Delivery Device Nasal cannula O2 Liters/Min 2.0 FiO2 21 <Austin De La Cruz MD - Last Filed: 11/27/24 04:27> Attestation: I personally reviewed and interpreted this ABG as follows: <Virginia Zimmer PA-C - Last Filed: 11/27/24 03:32> Imaging Data Attestation: I personally reviewed and interpreted this imaging study as follows: <Virginia Zimmer PA-C - Last Filed: 11/27/24 03:32> Radiologist's impression: STAT RAD CT brain: No hemorrhage, hydrocephalus, mass effect, or herniation. Bones unremarkable. <Virginia Zimmer PA-C - Last Filed: 11/27/24 03:32> STAT RAD CT brain: No hemorrhage, hydrocephalus, mass effect, or herniation. Bones unremarkable. Overnight read preliminary impression x-ray chest two views impression: No acute finding seen within the chest. <Austin De La Cruz MD - Last Filed: 11/27/24 04:27> ECG Data EKG #1: Attestation: I personally reviewed and interpreted this ECG as follows: <Virginia Zimmer PA-C - Last Filed: 11/27/24 03:32> ECG completion date: 11/27/24 <Virginia Zimmer PA-C - Last Filed: 11/27/24 03:32> ECG completion time: 01:43 <Virginia Zimmer PA-C - Last Filed: 11/27/24 03:32> EKG Interpretation: normal rate (77), sinus rhythm and non-specific ST changes <Virginia Zimmer PA-C - Last Filed: 11/27/24 03:32> Critical Care Time Critical Care Time Critical Care Time: Yes <Virginia Zimmer PA-C - Last Filed: 11/27/24 03:32> Total Critical Care Time: 35 <Virginia Zimmer PA-C - Last Filed: 11/27/24 03:32> 36 <Austin De La Cruz MD - Last Filed: 11/27/24 04:27> Discharge Plan Discharge Clinical Impression: Sepsis, Acute hypoxic respiratory failure, Hypomagnesemia, Lactic acidosis, UTI (urinary tract infection), Pulmonary embolism Pneumonia Qualifiers: Pneumonia type: due to unspecified organism Laterality: bilateral Lung location: lower lobe of lung Qualified Code(s): J18.9 - Pneumonia, unspecified organism <Virginia Zimmer PA-C - Last Filed: 11/27/24 03:32> Patient Disposition: Still a Patient <FILOMENA Whitley Last Filed: 11/27/24 03:32> Condition: Stable <FILOMENA Whitley Last Filed: 11/27/24 03:32> Patient Language: Pakistani <FILOMENA Whitley Last Filed: 11/27/24 03:32> Prescriptions: No Action atorvastatin 80 mg Tablet 40 mg PO DAILY venlafaxine 75 mg Capsule,Extended Release 24hr 75 mg PO DAILY Rx Instructions: 3 caps by mouth daily tamsulosin 0.4 mg Capsule 0.4 mg PO DAILY metformin 1,000 mg Tablet 1,000 mg PO BID gabapentin 300 mg Capsule 300 mg PO TID desmopressin 0.1 mg Tablet 0.1 mg PO BID metoprolol tartrate 25 mg Tablet 25 mg PO BID cholecalciferol (vitamin D3) [Vitamin D3] 50 mcg (2,000 unit) Tablet 50 mcg PO DAILY trazodone 100 mg Tablet 100 mg HS PRN (Reason: Sleep) quetiapine 200 mg Tablet 100 mg PO HS melatonin 3 mg Tablet 3 mg PO HS PRN (Reason: Sleep) amlodipine 10 mg Tablet 10 mg PO DAILY lisinopril 40 mg Tablet 20 mg PO DAILY Lantus U-100 Insulin 100 unit/mL Solution 35 unit SUBCUT DAILY insulin aspart U-100 [Novolog FlexPen U-100 Insulin] 100 unit/mL (3 mL) Insulin Pen 28 unit SUBCUT BIDWMEAL <Virginia Zimmer PA-C - Last Filed: 11/27/24 03:32> Follow-up/Referrals: UNKNOWN,DOCTOR [Primary Care Provider] <Virginia Zimmer PA-C - Last Filed: 11/27/24 03:32>
[2024-11-27 01:20] LABS: Alveolar/Arterial O2 Gradient 42.0 mmHg; Carboxyhemoglobin 0.4 % THb (0-2.0); Fractional Inspired Oxygen 21 %; HCO3 ABG 23.5 mEq/l (22.0-26.0); Methemoglobin ABG 0.2 %THb (0-1.5); Oxygen Content ABG 16.5 %vol (16.0-22.0); Oxygen Saturation ABG 95.2 % (95.0-100.0); PCO2 ABG 32.2 mmHg (35.0-45.0); PO2 ABG 69.2 mmHg (80.0-100.0); PO2 FiO2 Ratio Arterial Blood 3.30 %; Reduced Hemoglobin 5.8 %THb (0-5.0)
--- OUTSIDE RECORDS SUMMARY | 2024-11-27 01:27 | XMS_ITS | Clinical Summary ---
Author Organization [facility] Address [facility] [place] [address] Care Team Providers Care [employer] Name Role Phone Unavailable Primary Care Provider Unavailabl e Social History Tobacco Use Types Packs/Day Years Used Date Smoking Tobacco: Never Assessed Sex and Gender Information Value Date Recorded Sex Assigned at Not on file Legal Sex Male 8:32 PM CDT Gender Identity Not on file Sexual Orientation Not on file Plan of Treatment Health Maintenance Due Date Last Done Comments Colorectal Cancer Screening Colonoscopy (10 Years) 1952 Hepatitis C 1970 DTaP, Tdap and Td Vaccines ( 1 - Tdap) 1971 Pneumococcal Vaccine: 50+ Ye ars (1 of 1 - PCV) 2002 Zoster Vaccines (1 of 2) 2002 COVID-19 Vaccine ( - 2023-2 5 season) 2023 RSV Immunization or 60+ Years (1 - 1-dose 75+ series) 2027 Meningococcal B Vaccine Aged Out No l onger eligible based on patient's age to complete this topic Meningococcal Vaccine Aged Out No zenaida lisbet eligible based on patient's age to complete this topic RSV Immunizations Under 20 Months Aged Out No longer eligible based on patient's age to complete this topic
[2024-11-27 01:32] LABS: Liters per Minute 2.0 LPM; Modified Allen's Test Pass; Site Drawn RIGHT BRACHIAL
[2024-11-27 01:36] LABS: Hematocrit 34.9 % (42.0-52.0); Hemoglobin 11.6 g/dL (14.0-18.0); Immature Granulocyte Percent A 0.8 % (0-0.5); Lymphocytes Absolute Auto 1.19 K/mm3 (0.9-3.2); Mean Corpuscular HGB Conc 33.2 g/dl (32-36); Mean Corpuscular Hemoglobin 30.7 pg (26-34); Mean Corpuscular Volume 92.3 fl (80-100); Nucleated Red Blood Cells Absolute Auto 0.000 K/mm3 (0.0-0.012); Nucleated Red Blood Cells Perc 0.0 % (0.0-0.2); Platelet Count Result 206 k/mm3 (150-375); Red Blood Count 3.78 M/mm3 (4.6-6.20); White Blood Count 9.6 K/mm3 (4.5-10.0)
[2024-11-27] MEDS: ACETAMINOPHEN 500 MG TABLET 1000 MG PO (01:37)
[2024-11-27] MEDS: SODIUM CHLORIDE 0.9% IV 1,000 ML 999 ML IV CONT ×2 (01:37)
[2024-11-27 01:41] LABS: INR 1.2; Prothrombin Time 15.8 Seconds (11.1-14.7)
[2024-11-27 01:42] LABS: Partial Thromboplastin Time 34.3 Seconds (22.3-36.8)
[2024-11-27 01:45] LABS: Alanine Aminotransferase 44 U/L (6-50); Albumin Level 3.6 g/dL (3.5-5.1); Alkaline Phosphatase 68 U/L (38-126); Anion Gap 8 mmol/L (4-12); Aspartate Amino Transferase 45 U/L (17-59); Bilirubin,Total 0.8 mg/dL (0.2-1.3); Blood Urea Nitrogen 12 mg/dL (9-20); Calcium 8.4 mg/dL (8.4-10.2); Carbon Dioxide 22 mmol/L (22-30); Chloride 102 mmol/L (98-107); Estimated CRCL calculation 62 ml/min; Estimated Glomerular Filt Rate 53; Glucose 170 mg/dL (65-110); Magnesium 1.3 mg/dL (1.6-2.3); Potassium 4.0 mmol/L (3.4-5.0); Sodium 132 mmol/L (137-145); Total Protein 6.6 g/dL (6.3-8.2)
[2024-11-27 01:52] LABS: NT Pro B Type Natriuretic Pept 862 pg/mL (19.9-100); Troponin I 0.016 ng/mL (0.000-0.034)
[2024-11-27] MEDS: MAGNESIUM SULF 2 GM/WATER 50ML 2 GM/50 ML BAG IVPB (01:57)
[2024-11-27 01:59] LABS: CRP 15.7 mg/dL (<1.0)
[2024-11-27 02:34] LABS: Add Urine Microscopic? YES; Appearance Urine Cloudy (Clear); Glucose Urine UA Negative (Negative); Leukocyte Esterase Ur 2+ LEU/UL (Negative); Need Manual Microscopic Reviewed; Nitrate Urine Positive (Negative); Specific Grav Ur 1.023 (1.001-1.035)
[2024-11-27 03:00] LABS: Influenza A QL RT-PCR Negative (Negative); Influenza B QL RT-PCR Negative (Negative); RSV RNA, RT-PCR Negative (Negative); SARS-CoV-2 RNA PCR Negative (Negative)
[2024-11-27] MEDS: AZITHROMYCIN IV 500 MG in SODIUM CHLORIDE 0.9% IV 250 ML IVPB (03:04)
[2024-11-27] MEDS: cefTRIAXone 1 GM in SODIUM CHLORIDE 0.9% IV 50 ML 100 ML IVPB (03:05)
[2024-11-27] MEDS: HEPARIN SOD/D5W 100 UNITS/ML 25,000 UNITS/250 ML BAG 15 UNITS IV CONT (04:44)
--- NOTE | 2024-11-27 07:32 | ADMGEN ---
This patient, Be Summers, was admitted to [address] [place] [address] Room 323-02. Patient/family oriented to hospital policies and general routines including ID bracelet, bed and alarms, visiting hours, pain management, procedures, bathroom and other care routines, personal items, smoking policy, room service/diet, and visiting hours. Information on how to activate the Rapid Response Team has been discussed. Patient/Family are encouraged to report perceived risks to care and to ask questions if they do not understand what they are told or what they should do.
[2024-11-27 07:51] LABS: Troponin I 0.015 ng/mL (0.000-0.034)
[2024-11-27] MEDS: ENOXAPARIN 40 MG/0.4 ML SYRINGE SUB-Q (09:26)
[2024-11-27] MEDS: INSULIN ASPART (*BKC) 100 UNITS/ML SUB-Q ×2 (12:24→17:20)
--- NOTE | 2024-11-27 12:57 | PM.IMHP ---
H&P: HPI History of Present Illness Date/Time: 11/27/24 12:57 Chief Complaint: Shortness of Breath/Dyspnea Narrative: ER-HPI narrative: Patient is a 74-year-old male, with past medical history of schizophrenia, diabetes, hypertension, who presents the ED via EMS with report of weakness, shortness of breath. Patient reports he has had a intermittently productive cough for the past 2 weeks. Has been feeling short of breath, worse with exertion. Tonight became very lightheaded, worse with movements, and reported generalized weakness. reports that he was attempting to ambulate and his legs could no longer hold him and he gentlycollapsed to the ground. He did not fall or injure himself. called for EMS. EMS noted that patient was febrile and hypoxic. Placed him on 2 L nasal cannula. Patient denies previous oxygen requirement. Denies current chest pain. Denies pain or swelling in his legs. Denies focal numbness or weakness. Denies known fevers at home. upon arrival patient had C/O shortness of breath and weakness, patient ABG showed low oxygen and elevated D dimer concerning for PE and patient was started on heparin drip for possible, CTA of the chest is negative for PE, stopped heparin, patient has BPH and there concern for possible cystitis and his urine is very positive of UTI, patient does self kristel himself, this may explain fever upon arrival, patient is being treated with ceftriaxone, will follow up on urine culture, there is concern for sepsis as patient had fever, elevated lactic acid, and UTI, patient was hydrated in the ER, will repeat lactic acid levels, patient chest x-ray is negative for pneumonia. normally [place] receives his care from [place]. his is present in the room and gave updates. Review of Systems Review of Systems: All systems reviewed & are unremarkable except as noted in HPI. All systems reviewed & are unremarkable except as noted in HPI and below PMFSH Past Medical History Medical History (Updated 11/27/24 @ 04:27 by Austin De La Cruz MD) T2DM (type 2 diabetes mellitus) BPH (benign prostatic hyperplasia) Hyperlipidemia HTN (hypertension) Depression Suicidal thoughts Surgical History Surgical History Pituitary tumor History of trauma of chest Social History Social History Smoking status: Former smoker Tobacco type: cigarettes Smoking end date: 11/22/24 Alcohol intake: current Drinks per week: 2 Substance use: former Substance use type: marijuana Last use: 10/27/24 Lack of Transportation: No Lack of Food: Never True Current Housing: I Have Housing Concerned About Future Housing: No Difficulty Paying Gas/Electric Bills: No Difficulty Paying for Meds: No Currently Unemployed: No Education: Associate Degree Difficulty w/ Childcare or Family Care: No Living arrangements: with family Occupation/Education: occupation Spiritual care concerns: No Meds Home Medications and Allergies Home Medications ?Medication ?Instructions ?Recorded ?Confirmed ?Type amlodipine 10 mg tablet 10 mg PO HS 12/04/19 11/27/24 History atorvastatin 80 mg tablet 40 mg PO QPM 12/04/19 11/27/24 History cholecalciferol (vitamin D3) 50 50 mcg PO DAILY 12/04/19 11/27/24 History mcg (2,000 unit) tablet (Vitamin D3) desmopressin 0.1 mg tablet 0.1 mg PO BID 12/04/19 11/27/24 History gabapentin 300 mg capsule 300 mg PO BID 12/04/19 11/27/24 History insulin aspart U-100 100 unit/mL 28 unit subcut BIDWMEAL 12/04/19 11/27/24 History (3 mL) subcutaneous pen (Novolog FlexPen U-100 Insulin aspart) insulin glargine 100 unit/mL 35 unit subcut DAILY 12/04/19 11/27/24 History subcutaneous solution (Lantus U-100 Insulin) lisinopril 40 mg tablet 20 mg PO DAILY 12/04/19 11/27/24 History melatonin 3 mg tablet 9 mg PO HS Sleep 12/04/19 11/27/24 History metoprolol tartrate 25 mg tablet 25 mg PO BID 12/04/19 11/27/24 History quetiapine 200 mg tablet 100 mg PO HS 12/04/19 11/27/24 History tamsulosin 0.4 mg capsule 0.4 mg PO HS 12/04/19 11/27/24 History trazodone 100 mg tablet 100 mg PO HS PRN Sleep 12/04/19 11/27/24 History venlafaxine 75 mg capsule,extended 75 mg PO BID 12/04/19 11/27/24 History release 24 hr Allergies Allergy/AdvReac Type Severity Reaction Status Date / Time radish Allergy Mild Itching Verified 11/27/24 06:57 Vital Signs Vital Signs - 24 hr 11/27/24 00:41 11/27/24 00:46 11/27/24 00:47 Temperature 38.1 C H Pulse Rate 85 82 83 Respiratory Rate 25 H 33 H 19 Blood Pressure 113/61 124/66 124/66 Pulse Oximetry 97 94 95 Oxygen Delivery Nasal Cannula Oxygen Flow Rate 2 11/27/24 01:01 11/27/24 01:19 11/27/24 01:50 Temperature 37.2 C Pulse Rate 80 82 Respiratory Rate 32 H Blood Pressure 129/64 Pulse Oximetry 95 97 Oxygen Delivery Nasal Cannula Oxygen Flow Rate 2 11/27/24 02:31 11/27/24 03:01 11/27/24 03:31 Temperature Pulse Rate 69 67 72 Respiratory Rate 31 H 23 H 23 H Blood Pressure 119/63 113/59 L 107/54 L Pulse Oximetry 94 94 89 L Oxygen Delivery Oxygen Flow Rate 11/27/24 04:01 11/27/24 04:15 11/27/24 04:31 Temperature 37.2 C Pulse Rate 72 69 Respiratory Rate 24 H 21 H Blood Pressure 110/66 111/61 Pulse Oximetry 90 92 Oxygen Delivery Oxygen Flow Rate 11/27/24 07:01 11/27/24 08:00 11/27/24 08:46 Temperature 36.6 C Pulse Rate 71 95 Respiratory Rate 20 Blood Pressure 119/69 Pulse Oximetry 98 97 98 Oxygen Delivery Nasal Cannula Nasal Cannula Oxygen Flow Rate 2 2 11/27/24 10:50 11/27/24 11:57 Temperature Pulse Rate 89 94 Respiratory Rate Blood Pressure Pulse Oximetry 94 Oxygen Delivery Room Air Oxygen Flow Rate Exam Narrative: Morbidly obese Patient is comfortable, NAD HEENT: eyes are clear and none icteric LUNGS:CTA HEART: RR S1S2 ABD: BS+, Soft and nontender Lower extremities: no edema SKIN: nonjaundiced Neuro: grossly intact. H&P: Results Labs Labs: Short CBC 11/27/24 Range/Units 01:13 WBC 9.6 (4.5-10.0) K/mm3 Hgb 11.6 L (14.0-18.0) g/dL Hct 34.9 L (42.0-52.0) % Plt Count 206 (150-375) k/mm3 BMP 11/27/24 01:14 Sodium 132 L Potassium 4.0 Chloride 102 Carbon Dioxide 22 BUN 12 Creatinine 1.32 H Glucose 170 H Calcium 8.4 Cardiac Enzymes 11/27/24 11/27/24 Range/Units 01:14 07:20 Troponin I 0.016 0.015 (0.000-0.034) ng/mL Liver Function 11/27/24 Range/Units 01:14 Total Bilirubin 0.8 (0.2-1.3) mg/dL AST 45 (17-59) U/L ALT 44 (6-50) U/L Alkaline Phosphatase 68 (38-126) U/L Albumin 3.6 (3.5-5.1) g/dL Urine 11/27/24 Range/Units 02:12 Urine Color Dark yellow (Yellow) Urine Appearance Cloudy H (Clear) Urine pH 5.5 (5.0-9.0) Ur Specific [place] 1.023 (1.001-1.035) Urine Protein 3+ H (Negative) mg/dL Urine Glucose (UA) Negative (Negative) mg/dL Assessment and Plan Assessment and plan (1) UTI (urinary tract infection): Code(s): N39.0 - Urinary tract infection, site not specified Status: Acute (2) BPH (benign prostatic hyperplasia): Code(s): N40.0 - Benign prostatic hyperplasia without lower urinary tract symptoms Status: Acute (3) Hypomagnesemia: Code(s): E83.42 - Hypomagnesemia Status: Acute (4) Sepsis: Code(s): A41.9 - Sepsis, unspecified organism Status: Acute (5) Lactic acidosis: Code(s): E87.20 - Acidosis, unspecified Status: Acute Plan upon arrival patient had C/O shortness of breath and weakness, patient ABG showed low oxygen and elevated D dimer concerning for PE and patient was started on heparin drip for possible, CTA of the chest is negative for PE, stopped heparin, patient has BPH and there concern for possible cystitis and his urine is very positive of UTI, patient does self kristel himself, this may explain fever upon arrival, patient is being treated with ceftriaxone, will follow up on urine culture, there is concern for sepsis as patient had fever, elevated lactic acid, and UTI, patient was hydrated in the ER, will repeat lactic acid levels, patient chest x-ray is negative for pneumonia. normally patient receives his care from [place]. his is present in the room and gave updates. Quality VTE Prophylaxis VTE prophylaxis: pharmacologic ordered Hospitalist [facility] Advance Care Plan I have confirmed that the patient's Advanced Care Plan is present, code status is documented, or surrogate decision maker is listed in patient medical record.: Yes Medication Reconciliation The patient is not eligible for med reconciliation; the patient is in a emergent medical situation where delaying treatment would jeopardize the patients health.: Yes
[2024-11-27 14:44] LABS: Anion Gap 4 mmol/L (4-12); Blood Urea Nitrogen 13 mg/dL (9-20); Calcium 8.0 mg/dL (8.4-10.2); Carbon Dioxide 24 mmol/L (22-30); Chloride 98 mmol/L (98-107); Estimated CRCL calculation 85 ml/min; Estimated Glomerular Filt Rate > 60; Glucose 259 mg/dL (65-110); Magnesium 1.6 mg/dL (1.6-2.3); Potassium 3.3 mmol/L (3.4-5.0); Sodium 126 mmol/L (137-145)
[2024-11-27] MEDS: ACETAMINOPHEN 325 MG TABLET 650 MG PO (14:59)
[2024-11-27] MEDS: INSULIN ASPART (*BKC) 100 UNITS/ML 28 UNITS SUB-Q (17:20)
[2024-11-27] MEDS: ATORVASTATIN 40 MG TABLET PO (17:25)
[2024-11-27] MEDS: DESMOPRESSIN ACETATE 0.1 MG TABLET PO (17:26)
[2024-11-27] MEDS: DOXYCYCLINE IV 100 MG in SODIUM CHLORIDE 0.9% IV 100 ML IVPB (17:26)
[2024-11-27] MEDS: METOPROLOL TARTRATE 25 MG TABLET PO (20:52)
[2024-11-27] MEDS: GABAPENTIN 300 MG CAPSULE PO (20:52)
[2024-11-27] MEDS: VENLAFAXINE HCL XR 75 MG CAP.ER.24H PO (20:52)
[2024-11-27] MEDS: TAMSULOSIN HCL 0.4 MG CAPSULE PO (20:52)
[2024-11-28] VITALS (12 sets, daily range): BP systolic 90–131; BP diastolic 53–65; PULSE 63–84; RESP 18; TEMP 36.3–37.6; O2SAT 94–98
[2024-11-28] MEDS: cefTRIAXone 1 GM in SODIUM CHLORIDE 0.9% IV 50 ML 100 ML IVPB (01:19)
[2024-11-28] MEDS: DOXYCYCLINE IV 100 MG in SODIUM CHLORIDE 0.9% IV 100 ML IVPB ×2 (05:13→17:14)
[2024-11-28 06:12] LABS: Hematocrit 32.9 % (42.0-52.0); Hemoglobin 11.1 g/dL (14.0-18.0); Immature Granulocyte Percent A 1.0 % (0-0.5); Lymphocytes Absolute Auto 1.25 K/mm3 (0.9-3.2); Mean Corpuscular HGB Conc 33.7 g/dl (32-36); Mean Corpuscular Hemoglobin 30.9 pg (26-34); Mean Corpuscular Volume 91.6 fl (80-100); Nucleated Red Blood Cells Absolute Auto 0.000 K/mm3 (0.0-0.012); Nucleated Red Blood Cells Perc 0.0 % (0.0-0.2); Platelet Count Result 197 k/mm3 (150-375); Red Blood Count 3.59 M/mm3 (4.6-6.20); White Blood Count 9.2 K/mm3 (4.5-10.0)
[2024-11-28 06:38] LABS: Anion Gap 7 mmol/L (4-12); Blood Urea Nitrogen 11 mg/dL (9-20); Calcium 8.3 mg/dL (8.4-10.2); Carbon Dioxide 24 mmol/L (22-30); Chloride 100 mmol/L (98-107); Estimated CRCL calculation 69 ml/min; Estimated Glomerular Filt Rate 60; Glucose 127 mg/dL (65-110); Magnesium 1.7 mg/dL (1.6-2.3); Potassium 3.2 mmol/L (3.4-5.0); Sodium 131 mmol/L (137-145)
[2024-11-28] MEDS: INSULIN GLARGINE (*BKC) 100 UNITS/ML 35 UNITS SUB-Q (08:29)
[2024-11-28] MEDS: INSULIN ASPART (*BKC) 100 UNITS/ML 28 UNITS SUB-Q ×2 (08:29→17:11)
[2024-11-28] MEDS: POTASSIUM CHLORIDE 20 MEQ PACKET (FOR LIQUID) 40 MEQ PO (08:33)
[2024-11-28] MEDS: CHOLECALCIFEROL (VITAMIN D3) 25 MCG (1,000 UNITS) TABLET 50 MCG PO (08:37)
[2024-11-28] MEDS: VENLAFAXINE HCL XR 75 MG CAP.ER.24H PO ×2 (08:37→20:54)
[2024-11-28] MEDS: DESMOPRESSIN ACETATE 0.1 MG TABLET PO ×2 (08:37→17:09)
[2024-11-28] MEDS: GABAPENTIN 300 MG CAPSULE PO ×2 (08:37→20:54)
[2024-11-28] MEDS: ENOXAPARIN 40 MG/0.4 ML SYRINGE SUB-Q (08:38)
[2024-11-28] MEDS: METOPROLOL TARTRATE 25 MG TABLET PO ×2 (08:38→20:53)
[2024-11-28] MEDS: MAGNESIUM SULF 2 GM/WATER 50ML 2 GM/50 ML BAG IVPB (08:41)
--- NOTE | 2024-11-28 14:00 | PM.IMPN ---
Progress Note: A&P Assessment and Plan (1) UTI (urinary tract infection): Code(s): N39.0 - Urinary tract infection, site not specified Status: Acute (2) BPH (benign prostatic hyperplasia): Code(s): N40.0 - Benign prostatic hyperplasia without lower urinary tract symptoms Status: Acute (3) Hypomagnesemia: Code(s): E83.42 - Hypomagnesemia Status: Acute (4) Sepsis: Code(s): A41.9 - Sepsis, unspecified organism Status: Acute (5) Lactic acidosis: Code(s): E87.20 - Acidosis, unspecified Status: Acute Plan Upon arrival patient had C/O shortness of breath and weakness, patient ABG showed low oxygen and elevated D dimer concerning for PE and patient was started on heparin drip for possible PE, CTA of the chest is negative for PE, stopped heparin, patient has BPH and there concern for possible cystitis and his urine is very positive of UTI, patient does self kristel himself, this may explain fever upon arrival, patient is being treated with ceftriaxone, will follow up on urine culture, there is concern for sepsis as patient had fever, elevated lactic acid, and UTI, patient was hydrated in the ER, will repeat lactic acid levels was 1.1 patient chest x-ray is negative for pneumonia. normally patient receives his care from [place]. Subjective Date/time seen: 11/28/24 14:00 Interval history: Upon arrival patient had C/O shortness of breath and weakness, patient ABG showed low oxygen and elevated D dimer concerning for PE and patient was started on heparin drip for possible PE, CTA of the chest is negative for PE, stopped heparin, patient has BPH and there concern for possible cystitis and his urine is very positive of UTI, patient does self kristel himself, this may explain fever upon arrival, patient is being treated with ceftriaxone, will follow up on urine culture, there is concern for sepsis as patient had fever, elevated lactic acid, and UTI, patient was hydrated in the ER, will repeat lactic acid levels was 1.1 patient chest x-ray is negative for pneumonia. normally patient receives his care from [place]. Review of Systems Review of Systems: All systems reviewed & are unremarkable except as noted in HPI. All systems reviewed & are unremarkable except as noted in HPI and below Exam Narrative: Morbidly obese Patient is comfortable, NAD HEENT: eyes are clear and none icteric LUNGS:CTA HEART: RR S1S2 ABD: BS+, Soft and nontender Lower extremities: no edema SKIN: nonjaundiced Neuro: grossly intact. Objective Data Vital Signs Vital Signs: Vital Signs - 24 hr 11/27/24 14:59 11/27/24 15:59 11/27/24 16:00 Temperature 39.4 C H 38.8 C H Pulse Rate 83 Respiratory Rate Blood Pressure Pulse Oximetry Oxygen Delivery 11/27/24 17:36 11/27/24 20:04 11/27/24 20:49 Temperature 37.1 C Pulse Rate 91 92 Respiratory Rate Blood Pressure 147/76 H Pulse Oximetry Oxygen Delivery 11/27/24 20:52 11/27/24 21:00 11/27/24 22:51 Temperature Pulse Rate 83 85 80 Respiratory Rate Blood Pressure Pulse Oximetry 94 94 Oxygen Delivery Autopap Autopap 11/28/24 00:00 11/28/24 03:58 11/28/24 04:00 Temperature Pulse Rate 82 82 72 Respiratory Rate Blood Pressure Pulse Oximetry 94 Oxygen Delivery Autopap 11/28/24 06:00 11/28/24 08:00 11/28/24 08:00 Temperature 37.6 C H Pulse Rate 78 82 76 Respiratory Rate 18 Blood Pressure 90/53 L Pulse Oximetry 97 95 Oxygen Delivery Room Air 11/28/24 08:38 11/28/24 11:08 11/28/24 12:00 Temperature Pulse Rate 82 64 Respiratory Rate Blood Pressure Pulse Oximetry Oxygen Delivery Room Air Intake/Output Intake/Output: Intake & Output 11/25/24 11/26/24 11/27/24 11/28/24 23:59 23:59 23:59 23:59 Intake Total 2926 320 Output Total 1050 550 Balance 1876 -230 Meds/Results Medications: Active Medications Generic Name Dose Route Start Last Admin Trade Name Freq PRN Reason Stop Dose Admin Acetaminophen 650 mg 11/27/24 09:31 11/27/24 14:59 Acetaminophen 325 Mg Tablet PO 650 mg Q4H PRN Administration Mild Pain (1-3) Amlodipine Besylate 10 mg 11/27/24 21:00 11/27/24 20:52 Amlodipine Besylate 10 Mg Tablet PO 10 mg HS CARLOS Administration Atorvastatin Calcium 40 mg 11/27/24 18:00 11/27/24 17:25 Atorvastatin 40 Mg Tablet PO 40 mg QPM CARLOS Administration Desmopressin Acetate 0.1 mg 11/27/24 17:00 11/28/24 08:37 Desmopressin Acetate 0.1 Mg Tablet PO 0.1 mg BID CARLOS Administration Dextrose 12.5 gm 11/27/24 12:11 Dextrose 50% 25 Gm/50 Ml Syringe IV PUSH PRN PRN Hypoglycemia Protocol Enoxaparin Sodium 40 mg 11/27/24 10:00 11/28/24 08:38 Enoxaparin 40 Mg/0.4 Ml Syringe SUB-Q 40 mg DAILY CARLOS Administration Gabapentin 300 mg 11/27/24 21:00 11/28/24 08:37 Gabapentin 300 Mg Capsule PO 300 mg Q12HR CARLOS Administration Glucagon 1 mg 11/27/24 12:11 Glucagon For Inj 1 Mg Vial IM PRN PRN Hypoglycemia Protocol Glucose 15 gm 11/27/24 12:11 Glucose Oral Gel 15 Gm Of Glucse In 37.5 Gm Tube PO PRN PRN Hypoglycemia Protocol Ceftriaxone Sodium 1 gm/ 50 mls @ 100 mls/hr 11/28/24 02:00 11/28/24 01:19 Sodium Chloride IVPB 100 mls/hr Q24H CARLOS Administration Dextrose 1,000 mls @ 100 mls/hr 11/27/24 12:11 Dextrose 5% 1,000 Ml IVPB PRN PRN Hypoglycemia Protocol Doxycycline Hyclate 100 mg/ 100 mls @ 100 mls/hr 11/27/24 18:00 11/28/24 05:13 Sodium Chloride IVPB 100 mls/hr Q12H CARLOS Administration Insulin Aspart 2 - 5 units 11/27/24 12:00 11/28/24 11:50 Insulin Aspart (*Bkc) 100 Units/Ml SUB-Q Not Given TIDWM CARLOS Protocol Insulin Aspart 28 units 11/27/24 17:00 11/28/24 08:29 Insulin Aspart (*Bkc) 100 Units/Ml SUB-Q 28 units BIDWM CARLOS Administration Insulin Glargine 35 units 11/28/24 09:00 11/28/24 08:29 Insulin Glargine (*Bkc) 100 Units/Ml SUB-Q 35 units DAILY CARLOS Administration Lisinopril 20 mg 11/28/24 09:00 11/28/24 08:37 Lisinopril 20 Mg Tablet PO 20 mg DAILY CARLOS Administration Melatonin 9 mg 11/27/24 21:00 11/28/24 00:12 Melatonin 3 Mg Tablet PO Not Given HS CARLOS Metoprolol Tartrate 25 mg 11/27/24 21:00 11/28/24 08:38 Metoprolol Tartrate 25 Mg Tablet PO 25 mg Q12HR CARLOS Administration Quetiapine Fumarate 100 mg 11/27/24 21:00 11/27/24 20:52 Quetiapine Fumarate 100 Mg Tablet PO 100 mg HS CARLOS Administration Tamsulosin HCl 0.4 mg 11/27/24 21:00 11/27/24 20:52 Tamsulosin Hcl 0.4 Mg Capsule PO 0.4 mg HS CARLOS Administration Trazodone HCl 100 mg 11/27/24 16:16 11/27/24 20:51 Trazodone Hcl 50 Mg Tablet PO 100 mg HS PRN Administration Sleep Venlafaxine HCl 75 mg 11/27/24 21:00 11/28/24 08:37 Venlafaxine Hcl Xr 75 Mg Cap.Er.24h PO 75 mg Q12HR CARLOS Administration Vitamin D 50 mcg 11/28/24 09:00 11/28/24 08:37 Cholecalciferol (Vitamin D3) 25 Mcg (1,000 Units) Tablet PO 50 mcg DAILY CARLOS Administration Radiology Results: ITS Impressions Head CT 11/27/24 05:42 Impression: No significant abnormality seen. Chest X-Ray 11/27/24 05:47 Impression: Clear lungs. Chest/Abdomen/Pelvis CTA 11/27/24 05:55 Impression: No definite pulmonary embolus identified. Suspected cystitis. Correlate with urinalysis. Minimal bilateral pleural effusions with mild bibasilar atelectatic change. Cholelithiasis. Enlarged prostate gland. Labs Labs: Laboratory Results - last 24 hr 11/27/24 11/27/24 11/27/24 14:24 17:07 20:25 WBC RBC Hgb Hct MCV MCH MCHC RDW Plt Count MPV Immature Gran % (Auto) Neut % (Auto) Lymph % (Auto) [place] % (Auto) Eos % (Auto) Baso % (Auto) Lymph # (Auto) [place] # (Auto) Eos # (Auto) Baso # (Auto) Abs Immat Gran (auto) Absolute Neuts (auto) Absolute Nucleated RBC Nucleated RBC % Sodium 126 L Potassium 3.3 L Chloride 98 Carbon Dioxide 24 Anion Gap 4 BUN 13 Creatinine 0.96 Estim Creat Clear Calc 85 Estimated GFR > 60 Glucose 259 H POC Capillary Glucose 241 H 148 H Lactic Acid 1.1 Calcium 8.0 L Magnesium 1.6 11/28/24 11/28/24 11/28/24 05:42 07:44 11:47 WBC 9.2 RBC 3.59 L Hgb 11.1 L Hct 32.9 L MCV 91.6 MCH 30.9 MCHC 33.7 RDW 12.4 Plt Count 197 MPV 10.1 Immature Gran % (Auto) 1.0 H Neut % (Auto) 76.7 H Lymph % (Auto) 13.6 L [place] % (Auto) 8.2 Eos % (Auto) 0.1 Baso % (Auto) 0.4 Lymph # (Auto) 1.25 [place] # (Auto) 0.8 H Eos # (Auto) 0.0 Baso # (Auto) 0.0 Abs Immat Gran (auto) 0.09 H Absolute Neuts (auto) 7.1 H Absolute Nucleated RBC 0.000 Nucleated RBC % 0.0 Sodium 131 L Potassium 3.2 L Chloride 100 Carbon Dioxide 24 Anion Gap 7 BUN 11 Creatinine 1.19 Estim Creat Clear Calc 69 Estimated GFR 60 Glucose 127 H POC Capillary Glucose 138 H 167 H Lactic Acid Calcium 8.3 L Magnesium 1.7 Quality VTE Prophylaxis VTE prophylaxis: pharmacologic ordered
[2024-11-28] MEDS: ATORVASTATIN 40 MG TABLET PO (17:09)
[2024-11-28] MEDS: MELATONIN 3 MG TABLET 9 MG PO (20:52)
[2024-11-28] MEDS: TAMSULOSIN HCL 0.4 MG CAPSULE PO (20:54)
[2024-11-29] VITALS (12 sets, daily range): BP systolic 116–140; BP diastolic 57–73; PULSE 60–79; RESP 17–18; TEMP 36.4–37.3; O2SAT 92–97; BMI 34.2
[2024-11-29] MEDS: cefTRIAXone 1 GM in SODIUM CHLORIDE 0.9% IV 50 ML 100 ML IVPB ×2 (02:18→22:34)
[2024-11-29] MEDS: DOXYCYCLINE IV 100 MG in SODIUM CHLORIDE 0.9% IV 100 ML IVPB (05:25)
[2024-11-29 06:24] LABS: Hematocrit 31.4 % (42.0-52.0); Hemoglobin 10.6 g/dL (14.0-18.0); Mean Corpuscular HGB Conc 33.8 g/dl (32-36); Mean Corpuscular Hemoglobin 30.5 pg (26-34); Mean Corpuscular Volume 90.2 fl (80-100); Platelet Count Result 184 k/mm3 (150-375); Red Blood Count 3.48 M/mm3 (4.6-6.20); White Blood Count 5.4 K/mm3 (4.5-10.0)
[2024-11-29 07:05] LABS: Anion Gap 5 mmol/L (4-12); Blood Urea Nitrogen 13 mg/dL (9-20); Calcium 8.0 mg/dL (8.4-10.2); Carbon Dioxide 24 mmol/L (22-30); Chloride 99 mmol/L (98-107); Estimated CRCL calculation 87 ml/min; Estimated Glomerular Filt Rate > 60; Glucose 105 mg/dL (65-110); Magnesium 1.8 mg/dL (1.6-2.3); Potassium 3.2 mmol/L (3.4-5.0); Sodium 128 mmol/L (137-145)
--- NOTE | 2024-11-29 08:50 | ECG_ITS ---
Test Date: 2024-11-29 09:02:38 Measurements Intervals [place] Rate: 70 P: 84 OR: 208 QRS: -35 QRSD: 129 T: 67 QT: 412 QTc: 445 Interpretive Statements SINUS RHYTHM WITH FIRST DEGREE AV BLOCK LEFT AXIS DEVIATION INTRAVENTRICULAR CONDUCTION DELAY CANNOT R/O SEPTAL INFARCT, AGE INDETERMINATE ABNORMAL ECG Compared to ECG 11/27/2024 01:43:24 NO SIGNIFICANT CHANGE Electronically Signed On 11-29-2024 09:35:[address] D[address]O.
--- NOTE | 2024-11-29 09:02 | PM.IMPN ---
Progress Note: A&P Assessment and Plan (1) UTI (urinary tract infection): Code(s): N39.0 - Urinary tract infection, site not specified Status: Acute Assessment and Plan: UA shows urine nitrite positive, 2+ leukocyte esterases, more than 100 urine wbc's 4+ urine bacteria Urine culture grew Gram-negative bacilli Continue ceftriaxone (2) BPH (benign prostatic hyperplasia): Code(s): N40.0 - Benign prostatic hyperplasia without lower urinary tract symptoms Status: Acute Assessment and Plan: CT abdomen pelvis revealed prostate enlargement On clinical exam, no pain or tenderness Continue home regimen tamsulosin Continue to monitor (3) Hypomagnesemia: Code(s): E83.42 - Hypomagnesemia Status: Acute Assessment and Plan: Replaced (4) Sepsis: Code(s): A41.9 - Sepsis, unspecified organism Status: Acute Assessment and Plan: Hemodynamically stable Repeat lactic acid has normalized Continue to monitor (5) Lactic acidosis: Code(s): E87.20 - Acidosis, unspecified Status: Acute Assessment and Plan: Repeat lactate 1 point (6) Insulin dependent type 2 diabetes mellitus: Code(s): E11.9 - Type 2 diabetes mellitus without complications; Z79.4 - [facility] (current) use of insulin Status: Acute Assessment and Plan: A1c 7.9 in this admission Patient takes Lantus 28 units daily and NovoLog 28 units before breakfast CGM was attempted in his PCP office at the [place]-but fall off after two days This morning, BS 69 will reduce lantus from35 units to 28 units daily Hold Novolog 28 units for now POCT, hypoglycemia protocol He will resume his home GLP receptor agonists returning home will add SGL2I Subjective Date/time seen: 11/29/24 09:02 Interval history: This morning, his blood sugar was 69 but asymptomatic. Short-acting insulin was discontinued and no acting insulin Lantus was reduced to 28 units daily. Denies headache, chest pain, shortness some risks, cough, abdominal pain and diarrhea. Review of Systems Review of Systems: All systems reviewed & are unremarkable except as noted in HPI and below Exam Const: General: no acute distress Eyes: Sclera: sclerae normal EOM: EOMs intact bilaterally Neck: Neck: supple Resp: Effort & Inspection: normal respiratory effort Auscultation: clear to auscultation bilaterally Cardio: Rate: regular rate Rhythm: regular rhythm Heart sounds: Gallop heart sound present, Murmur heart sound present and Rub heart sound present GI: GI Palp: Yes Soft to palpation Other: no guarding, no organomegaly Skin: General skin exam: no rashes or lesions noted Neuro: Speech: normal speech Motor exam (neuro): Normal motor muscle tone present throughout Extrem: General: normal to inspection Psych: Affect: normal affect Objective Data Vital Signs Vital Signs: Vital Signs - 24 hr 11/28/24 11:08 11/28/24 12:00 11/28/24 15:14 Temperature 36.7 C Pulse Rate 64 69 Respiratory Rate 18 Blood Pressure 107/57 L Pulse Oximetry 98 Oxygen Delivery Room Air 11/28/24 16:00 11/28/24 20:00 11/28/24 20:20 Temperature 36.3 C L Pulse Rate 63 76 84 Respiratory Rate 18 Blood Pressure 131/65 Pulse Oximetry 97 Oxygen Delivery 11/28/24 20:53 11/29/24 00:00 11/29/24 04:00 Temperature Pulse Rate 84 76 60 Respiratory Rate Blood Pressure Pulse Oximetry Oxygen Delivery 11/29/24 05:15 11/29/24 08:58 Temperature 36.9 C Pulse Rate 61 70 Respiratory Rate 17 18 Blood Pressure 116/60 119/57 L Pulse Oximetry 97 94 Oxygen Delivery Intake/Output Intake/Output: Intake & Output 11/26/24 11/27/24 11/28/24 11/29/24 23:59 23:59 23:59 23:59 Intake Total 2926 1110 360 Output Total 1050 1200 600 Balance 5145 -90 -115 Meds/Results Medications: Active Medications Generic Name Dose Route Start Last Admin Trade Name Freq PRN Reason Stop Dose Admin Acetaminophen 650 mg 11/27/24 09:31 11/27/24 14:59 Acetaminophen 325 Mg Tablet PO 650 mg Q4H PRN Administration Mild Pain (1-3) Amlodipine Besylate 10 mg 11/27/24 21:00 11/28/24 20:54 Amlodipine Besylate 10 Mg Tablet PO 10 mg HS CARLOS Administration Atorvastatin Calcium 40 mg 11/27/24 18:00 11/28/24 17:09 Atorvastatin 40 Mg Tablet PO 40 mg QPM CARLOS Administration Desmopressin Acetate 0.1 mg 11/27/24 17:00 11/28/24 17:09 Desmopressin Acetate 0.1 Mg Tablet PO 0.1 mg BID CARLOS Administration Dextrose 12.5 gm 11/27/24 12:11 Dextrose 50% 25 Gm/50 Ml Syringe IV PUSH PRN PRN Hypoglycemia Protocol Doxycycline Hyclate 100 mg 11/29/24 19:00 Doxycycline Hyclate 100 Mg Tablet PO 12/01/24 21:01 Q12HR CARLOS Enoxaparin Sodium 40 mg 11/27/24 10:00 11/28/24 08:38 Enoxaparin 40 Mg/0.4 Ml Syringe SUB-Q 40 mg DAILY CARLOS Administration Gabapentin 300 mg 11/27/24 21:00 11/28/24 20:54 Gabapentin 300 Mg Capsule PO 300 mg Q12HR CARLOS Administration Glucagon 1 mg 11/27/24 12:11 Glucagon For Inj 1 Mg Vial IM PRN PRN Hypoglycemia Protocol Glucose 15 gm 11/27/24 12:11 Glucose Oral Gel 15 Gm Of Glucse In 37.5 Gm Tube PO PRN PRN Hypoglycemia Protocol Ceftriaxone Sodium 1 gm/ 50 mls @ 100 mls/hr 11/28/24 02:00 11/29/24 02:18 Sodium Chloride IVPB 100 mls/hr Q24H CARLOS Administration Dextrose 1,000 mls @ 100 mls/hr 11/27/24 12:11 Dextrose 5% 1,000 Ml IVPB PRN PRN Hypoglycemia Protocol Potassium Chloride/Dextrose/Sod Cl 1,000 mls @ 100 mls/hr 11/29/24 09:00 Kcl 40 Meq/D5 1/2ns IV CONT .Q10H CARLOS Potassium Chloride 40 meq/ 520 mls @ 130 mls/hr 11/29/24 08:55 Sodium Chloride IVPB 11/29/24 12:54 ONCE ONE Magnesium Sulfate 2 gm in 50 mls @ 25 mls/hr 11/29/24 08:55 Magnesium Sulf 2 Gm/Water 50ml IVPB 11/29/24 10:54 ONCE ONE Insulin Aspart 2 - 5 units 11/27/24 12:00 11/28/24 17:06 Insulin Aspart (*Bkc) 100 Units/Ml SUB-Q Not Given TIDWM CARLOS Protocol Insulin Aspart 28 units 11/27/24 17:00 11/28/24 17:11 Insulin Aspart (*Bkc) 100 Units/Ml SUB-Q 28 units BIDWM CARLOS Administration Insulin Glargine 35 units 11/28/24 09:00 11/28/24 08:29 Insulin Glargine (*Bkc) 100 Units/Ml SUB-Q 35 units DAILY CARLOS Administration Lisinopril 20 mg 11/28/24 09:00 11/28/24 08:37 Lisinopril 20 Mg Tablet PO 20 mg DAILY CARLOS Administration Melatonin 9 mg 11/27/24 21:00 11/28/24 20:52 Melatonin 3 Mg Tablet PO 9 mg HS CARLOS Administration Metoprolol Tartrate 25 mg 11/27/24 21:00 11/28/24 20:53 Metoprolol Tartrate 25 Mg Tablet PO 25 mg Q12HR CARLOS Administration Quetiapine Fumarate 100 mg 11/27/24 21:00 11/28/24 20:54 Quetiapine Fumarate 100 Mg Tablet PO 100 mg HS CARLOS Administration Tamsulosin HCl 0.4 mg 11/27/24 21:00 11/28/24 20:54 Tamsulosin Hcl 0.4 Mg Capsule PO 0.4 mg HS CARLOS Administration Trazodone HCl 100 mg 11/27/24 16:16 11/27/24 20:51 Trazodone Hcl 50 Mg Tablet PO 100 mg HS PRN Administration Sleep Venlafaxine HCl 75 mg 11/27/24 21:00 11/28/24 20:54 Venlafaxine Hcl Xr 75 Mg Cap.Er.24h PO 75 mg Q12HR CARLOS Administration Vitamin D 50 mcg 11/28/24 09:00 11/28/24 08:37 Cholecalciferol (Vitamin D3) 25 Mcg (1,000 Units) Tablet PO 50 mcg DAILY CARLOS Administration Radiology Results: ITS Impressions Head CT 11/27/24 05:42 Impression: No significant abnormality seen. Chest X-Ray 11/27/24 05:47 Impression: Clear lungs. Chest/Abdomen/Pelvis CTA 11/27/24 05:55 Impression: No definite pulmonary embolus identified. Suspected cystitis. Correlate with urinalysis. Minimal bilateral pleural effusions with mild bibasilar atelectatic change. Cholelithiasis. Enlarged prostate gland. Labs Labs: Laboratory Results - last 24 hr 11/28/24 11/28/24 11/28/24 11:47 16:48 20:23 WBC RBC Hgb Hct MCV MCH MCHC RDW Plt Count MPV Sodium Potassium Chloride Carbon Dioxide Anion Gap BUN Creatinine Estim Creat Clear Calc Estimated GFR Glucose POC Capillary Glucose 167 H 103 90 Calcium Magnesium 11/28/24 11/29/24 11/29/24 23:51 00:57 05:44 WBC 5.4 RBC 3.48 L Hgb 10.6 L Hct 31.4 L MCV 90.2 MCH 30.5 MCHC 33.8 RDW 12.8 Plt Count 184 MPV 10.3 Sodium 128 L Potassium 3.2 L Chloride 99 Carbon Dioxide 24 Anion Gap 5 BUN 13 Creatinine 0.93 Estim Creat Clear Calc 87 Estimated GFR > 60 Glucose 105 POC Capillary Glucose 69 129 H Calcium 8.0 L Magnesium 1.8 11/29/24 07:32 WBC RBC Hgb Hct MCV MCH MCHC RDW Plt Count MPV Sodium Potassium Chloride Carbon Dioxide Anion Gap BUN Creatinine Estim Creat Clear Calc Estimated GFR Glucose POC Capillary Glucose 129 H Calcium Magnesium Quality VTE Prophylaxis VTE prophylaxis: pharmacologic ordered (Lovenox)
[2024-11-29 09:24] LABS: Hemoglobin A1C 7.9 % (<5.7)
[2024-11-29] MEDS: GABAPENTIN 300 MG CAPSULE PO ×2 (09:50→22:33)
[2024-11-29] MEDS: VENLAFAXINE HCL XR 75 MG CAP.ER.24H PO ×2 (09:50→22:32)
[2024-11-29] MEDS: CHOLECALCIFEROL (VITAMIN D3) 25 MCG (1,000 UNITS) TABLET 50 MCG PO (09:50)
[2024-11-29] MEDS: ENOXAPARIN 40 MG/0.4 ML SYRINGE SUB-Q (09:51)
[2024-11-29] MEDS: INSULIN GLARGINE (*BKC) 100 UNITS/ML 35 UNITS SUB-Q (09:51)
[2024-11-29] MEDS: MAGNESIUM SULF 2 GM/WATER 50ML 2 GM/50 ML BAG IVPB (10:21)
[2024-11-29] MEDS: METOPROLOL TARTRATE 25 MG TABLET PO ×2 (11:22→22:45)
--- NOTE | 2024-11-29 12:47 | PCPTNOTE ---
Attempted to see patient twice for Physical Therapy this afternoon. Patient was eating lunch on the first attempt. Second attempt, pt declined to participate in Physical Therapy today. RN notified.
[2024-11-29] MEDS: POTASSIUM CHLORIDE INJ 40 MEQ in SODIUM CHLORIDE 0.9% IV 500 ML 130 MEQ IVPB (14:39)
[2024-11-29] MEDS: ATORVASTATIN 40 MG TABLET PO (17:27)
[2024-11-29] MEDS: EMPAGLIFLOZIN 10 MG TABLET PO (17:27)
[2024-11-29] MEDS: TAMSULOSIN HCL 0.4 MG CAPSULE PO (22:33)
[2024-11-29] MEDS: MELATONIN 3 MG TABLET 9 MG PO (22:34)
[2024-11-30] VITALS (15 sets, daily range): BP systolic 128–141; BP diastolic 62–77; PULSE 27–87; RESP 18–20; TEMP 36.4–36.7; O2SAT 94–99
[2024-11-30 06:29] LABS: Hematocrit 34.1 % (42.0-52.0); Hemoglobin 11.6 g/dL (14.0-18.0); Mean Corpuscular HGB Conc 34.0 g/dl (32-36); Mean Corpuscular Hemoglobin 30.6 pg (26-34); Mean Corpuscular Volume 90.0 fl (80-100); Platelet Count Result 240 k/mm3 (150-375); Red Blood Count 3.79 M/mm3 (4.6-6.20); White Blood Count 5.2 K/mm3 (4.5-10.0)
[2024-11-30 06:54] LABS: Anion Gap 7 mmol/L (4-12); Blood Urea Nitrogen 10 mg/dL (9-20); Calcium 8.7 mg/dL (8.4-10.2); Carbon Dioxide 25 mmol/L (22-30); Chloride 103 mmol/L (98-107); Estimated CRCL calculation 85 ml/min; Estimated Glomerular Filt Rate > 60; Glucose 97 mg/dL (65-110); Magnesium 1.9 mg/dL (1.6-2.3); Potassium 3.4 mmol/L (3.4-5.0); Sodium 135 mmol/L (137-145)
[2024-11-30] MEDS: CHOLECALCIFEROL (VITAMIN D3) 25 MCG (1,000 UNITS) TABLET 50 MCG PO (09:27)
[2024-11-30] MEDS: METOPROLOL TARTRATE 25 MG TABLET PO ×2 (09:27→20:34)
[2024-11-30] MEDS: ENOXAPARIN 40 MG/0.4 ML SYRINGE SUB-Q (09:27)
[2024-11-30] MEDS: EMPAGLIFLOZIN 10 MG TABLET PO (09:28)
[2024-11-30] MEDS: GABAPENTIN 300 MG CAPSULE PO ×2 (09:28→20:35)
[2024-11-30] MEDS: INSULIN GLARGINE (*BKC) 100 UNITS/ML 28 UNITS SUB-Q (09:28)
[2024-11-30] MEDS: VENLAFAXINE HCL XR 75 MG CAP.ER.24H PO ×2 (09:28→20:34)
[2024-11-30 15:07] LABS: Hematocrit 36.1 % (42.0-52.0); Hemoglobin 12.1 g/dL (14.0-18.0); Mean Corpuscular HGB Conc 33.5 g/dl (32-36); Mean Corpuscular Hemoglobin 30.3 pg (26-34); Mean Corpuscular Volume 90.5 fl (80-100); Platelet Count Result 271 k/mm3 (150-375); Red Blood Count 3.99 M/mm3 (4.6-6.20); White Blood Count 6.0 K/mm3 (4.5-10.0)
[2024-11-30 15:33] LABS: Alanine Aminotransferase 276 U/L (6-50); Albumin Level 3.6 g/dL (3.5-5.1); Alkaline Phosphatase 102 U/L (38-126); Anion Gap 6 mmol/L (4-12); Aspartate Amino Transferase 308 U/L (17-59); Bilirubin,Total 0.5 mg/dL (0.2-1.3); Blood Urea Nitrogen 13 mg/dL (9-20); Calcium 9.1 mg/dL (8.4-10.2); Carbon Dioxide 26 mmol/L (22-30); Chloride 102 mmol/L (98-107); Estimated CRCL calculation 85 ml/min; Estimated Glomerular Filt Rate > 60; Glucose 153 mg/dL (65-110); Potassium 3.5 mmol/L (3.4-5.0); Sodium 134 mmol/L (137-145); Total Protein 6.9 g/dL (6.3-8.2)
--- NOTE | 2024-11-30 16:14 | PM.IMPN ---
Progress Note: A&P Assessment and Plan (1) UTI (urinary tract infection): Code(s): N39.0 - Urinary tract infection, site not specified Status: Acute Assessment and Plan: UA shows urine nitrite positive, 2+ leukocyte esterases, more than 100 urine wbc's 4+ urine bacteria Urine culture grew Gram-negative bacilli Completed ceftriaxone (2) BPH (benign prostatic hyperplasia): Code(s): N40.0 - Benign prostatic hyperplasia without lower urinary tract symptoms Status: Acute Assessment and Plan: CT abdomen pelvis revealed prostate enlargement On clinical exam, no pain or tenderness Continue home regimen tamsulosin Continue to monitor (3) Hypomagnesemia: Code(s): E83.42 - Hypomagnesemia Status: Acute Assessment and Plan: Resolved (4) Sepsis: Code(s): A41.9 - Sepsis, unspecified organism Status: Acute Assessment and Plan: Hemodynamically stable Repeat lactic acid has normalized Continue to monitor (5) Lactic acidosis: Code(s): E87.20 - Acidosis, unspecified Status: Acute Assessment and Plan: Repeat lactate 1 point (6) Insulin dependent type 2 diabetes mellitus: Code(s): E11.9 - Type 2 diabetes mellitus without complications; Z79.4 - [facility] (current) use of insulin Status: Acute Assessment and Plan: A1c 7.9 in this admission Patient takes Lantus 28 units daily and NovoLog 28 units before breakfast CGM was attempted in his PCP office at the [place]-but fall off after two days This morning, BS 69 will reduce lantus from35 units to 28 units daily Hold Novolog 28 units for now POCT, hypoglycemia protocol He will resume his home GLP receptor agonists returning home Continue Jardiance (7) Elevated liver enzymes: Code(s): R74.8 - Abnormal levels of other serum enzymes Status: Acute Assessment and Plan: Denies abdominal pain, diarrhea Likely secondary to medication side effect Continue to monitor CMP daily Subjective Date/time seen: 11/30/24 16:14 Interval history: He was seen and examined. He said he did not sleep well because he was given his medication late. He denies any chest pain. Exam Narrative: Morbidly obese Patient is comfortable, NAD HEENT: eyes are clear and none icteric LUNGS:CTA HEART: RR S1S2 ABD: BS+, Soft and nontender Lower extremities: no edema, petechia on the dorsal foot SKIN: nonjaundiced Neuro: grossly intact. Objective Data Vital Signs Vital Signs: Vital Signs - 24 hr 11/29/24 20:00 11/29/24 20:00 11/29/24 22:00 Temperature 36.4 C L Pulse Rate 74 79 Respiratory Rate 18 Blood Pressure 140/65 Pulse Oximetry 92 Oxygen Delivery Room Air 11/29/24 22:45 11/30/24 00:00 11/30/24 04:00 Temperature Pulse Rate 79 59 L 67 Respiratory Rate Blood Pressure Pulse Oximetry Oxygen Delivery 11/30/24 06:00 11/30/24 09:27 Temperature 36.6 C Pulse Rate 77 69 Respiratory Rate 18 Blood Pressure 138/69 Pulse Oximetry 94 Oxygen Delivery Intake/Output Intake/Output: Intake & Output 11/27/24 11/28/24 11/29/24 11/30/24 23:59 23:59 23:59 23:59 Intake Total 2926 1110 4360 560 Output Total 1050 1200 7900 2000 Balance 9950 -90 -1205 -5242 Meds/Results Medications: Active Medications Generic Name Dose Route Start Last Admin Trade Name Freq PRN Reason Stop Dose Admin Acetaminophen 650 mg 11/27/24 09:31 11/27/24 14:59 Acetaminophen 325 Mg Tablet PO 650 mg Q4H PRN Administration Mild Pain (1-3) Amlodipine Besylate 10 mg 11/27/24 21:00 11/29/24 22:32 Amlodipine Besylate 10 Mg Tablet PO 10 mg HS CARLOS Administration Atorvastatin Calcium 40 mg 11/27/24 18:00 11/29/24 17:27 Atorvastatin 40 Mg Tablet PO 40 mg QPM CARLOS Administration Dextrose 12.5 gm 11/27/24 12:11 Dextrose 50% 25 Gm/50 Ml Syringe IV PUSH PRN PRN Hypoglycemia Protocol Empagliflozin 10 mg 11/29/24 09:00 11/30/24 09:28 Empagliflozin 10 Mg Tablet PO 10 mg DAILY ACRLOS Administration Enoxaparin Sodium 40 mg 11/27/24 10:00 11/30/24 09:27 Enoxaparin 40 Mg/0.4 Ml Syringe SUB-Q 40 mg DAILY CARLOS Administration Gabapentin 300 mg 11/27/24 21:00 11/30/24 09:28 Gabapentin 300 Mg Capsule PO 300 mg Q12HR CARLOS Administration Glucagon 1 mg 11/27/24 12:11 Glucagon For Inj 1 Mg Vial IM PRN PRN Hypoglycemia Protocol Glucose 15 gm 11/27/24 12:11 Glucose Oral Gel 15 Gm Of Glucse In 37.5 Gm Tube PO PRN PRN Hypoglycemia Protocol Dextrose 1,000 mls @ 100 mls/hr 11/27/24 12:11 Dextrose 5% 1,000 Ml IVPB PRN PRN Hypoglycemia Protocol Insulin Aspart 2 - 5 units 11/27/24 12:00 11/30/24 12:00 Insulin Aspart (*Bkc) 100 Units/Ml SUB-Q Not Given TIDWM CARLOS Protocol Insulin Glargine 28 units 11/30/24 09:00 11/30/24 09:28 Insulin Glargine (*Bkc) 100 Units/Ml SUB-Q 28 units DAILY CARLOS Administration Lisinopril 20 mg 11/28/24 09:00 11/30/24 09:28 Lisinopril 20 Mg Tablet PO 20 mg DAILY CARLOS Administration Melatonin 9 mg 11/27/24 21:00 11/29/24 22:34 Melatonin 3 Mg Tablet PO 9 mg HS CARLOS Administration Metoprolol Tartrate 25 mg 11/27/24 21:00 11/30/24 09:27 Metoprolol Tartrate 25 Mg Tablet PO 25 mg Q12HR CARLOS Administration Polyethylene Glycol 17 gm 11/29/24 10:15 Polyethylene Glycol 3350 17 Gm Powd.Pack PO QAM PRN Constipation Quetiapine Fumarate 100 mg 11/27/24 21:00 11/29/24 22:33 Quetiapine Fumarate 100 Mg Tablet PO 100 mg HS CARLOS Administration Tamsulosin HCl 0.4 mg 11/27/24 21:00 11/29/24 22:33 Tamsulosin Hcl 0.4 Mg Capsule PO 0.4 mg HS CARLOS Administration Trazodone HCl 100 mg 11/27/24 16:16 11/29/24 22:33 Trazodone Hcl 50 Mg Tablet PO 100 mg HS PRN Administration Sleep Venlafaxine HCl 75 mg 11/27/24 21:00 11/30/24 09:28 Venlafaxine Hcl Xr 75 Mg Cap.Er.24h PO 75 mg Q12HR CARLOS Administration Vitamin D 50 mcg 11/28/24 09:00 11/30/24 09:27 Cholecalciferol (Vitamin D3) 25 Mcg (1,000 Units) Tablet PO 50 mcg DAILY CARLOS Administration Radiology Results: ITS Impressions Head CT 11/27/24 05:42 Impression: No significant abnormality seen. Chest X-Ray 11/27/24 05:47 Impression: Clear lungs. Chest/Abdomen/Pelvis CTA 11/27/24 05:55 Impression: No definite pulmonary embolus identified. Suspected cystitis. Correlate with urinalysis. Minimal bilateral pleural effusions with mild bibasilar atelectatic change. Cholelithiasis. Enlarged prostate gland. Labs Labs: Laboratory Results - last 24 hr 11/29/24 11/29/24 11/30/24 16:19 21:43 06:08 WBC 5.2 RBC 3.79 L Hgb 11.6 L Hct 34.1 L MCV 90.0 MCH 30.6 MCHC 34.0 RDW 12.9 Plt Count 240 MPV 10.1 Sodium 135 L Potassium 3.4 Chloride 103 Carbon Dioxide 25 Anion Gap 7 BUN 10 Creatinine 0.95 Estim Creat Clear Calc 85 Estimated GFR > 60 Glucose 97 POC Capillary Glucose 173 H 127 H Calcium 8.7 Magnesium 1.9 Total Bilirubin AST ALT Alkaline Phosphatase Total Protein Albumin 11/30/24 11/30/24 11/30/24 08:22 11:49 14:55 WBC 6.0 RBC 3.99 L Hgb 12.1 L Hct 36.1 L MCV 90.5 MCH 30.3 MCHC 33.5 RDW 13.0 Plt Count 271 MPV 10.0 Sodium 134 L Potassium 3.5 Chloride 102 Carbon Dioxide 26 Anion Gap 6 BUN 13 Creatinine 0.96 Estim Creat Clear Calc 85 Estimated GFR > 60 Glucose 153 H POC Capillary Glucose 97 159 H Calcium 9.1 Magnesium Total Bilirubin 0.5 AST 308 H ALT 276 H Alkaline Phosphatase 102 Total Protein 6.9 Albumin 3.6 Quality VTE Prophylaxis VTE prophylaxis: pharmacologic ordered (Lovenox)
[2024-11-30] MEDS: ATORVASTATIN 40 MG TABLET PO (18:48)
[2024-11-30] MEDS: MELATONIN 3 MG TABLET 9 MG PO (20:34)
[2024-11-30] MEDS: TAMSULOSIN HCL 0.4 MG CAPSULE PO (20:34)
[2024-12-01] VITALS (12 sets, daily range): BP systolic 117–149; BP diastolic 60–97; PULSE 53–102; RESP 16–20; TEMP 36.2–36.8; O2SAT 94–96
--- NOTE | 2024-12-01 01:34 | ECG_ITS ---
Test Date: 2024-12-01 01:45:15 Measurements Intervals Wolsey Rate: 61 P: 11 MT: 213 QRS: -41 QRSD: 124 T: 34 QT: 444 QTc: 449 Interpretive Statements SINUS RHYTHM WITH FIRST DEGREE AV BLOCK LEFT AXIS DEVIATION INTRAVENTRICULAR CONDUCTION DELAY CANNOT R/O SEPTAL INFARCT, AGE INDETERMINATE ABNORMAL ECG Compared to ECG 11/29/2024 09:02:38 NO SIGNIFICANT CHANGE Electronically Signed On 12-01-2024 07:31:[address] D.O.
--- NOTE | 2024-12-01 01:54 | PM.EVENT ---
Event Note Event Note Event Note: At 0131, I was notified by the pt's nurse, Jameson that his heart rate was noted to be dipping down into the 20s-30s while sleeping. Once awake, the pt's pulse returns to normal. Stat EKG was obtained that demonstrates NSR with 1st degree AVB shan rate of 61 bpm w/LAD which is consistent with his previous EKG's. No high grade second degree block appreciated. QRS is noted to be 124 and QTC 449. Pt asymptomatic during these drops as he is sleeping when it does. Pt's Metoprolol here was ordered as Metoprolol Tartrate 25 mg Q12 hrs, however, his confirmed home dose is actually Metoprolol Tartrate 12.5 mg BID. It is unclear from reading EMR why the increased dose. Suspect that the increased dose of Beta Blockade is causing the Bradycardia, especially when added to other sedating medications such as Seroquel, Gabapentin, and Melatonin. Pt does wear a CPAP at night and RN reports that it was on at the time of the brief drop that was not sustained. Will consult Cardiology, hold Metoprolol and allow for Beta blockade washout and order ECHO in the interim. Suggest re-evaluation of meds to eliminate any polypharmacy.
[2024-12-01 05:56] LABS: Hematocrit 36.5 % (42.0-52.0); Hemoglobin 12.3 g/dL (14.0-18.0); Mean Corpuscular HGB Conc 33.7 g/dl (32-36); Mean Corpuscular Hemoglobin 30.6 pg (26-34); Mean Corpuscular Volume 90.8 fl (80-100); Platelet Count Result 286 k/mm3 (150-375); Red Blood Count 4.02 M/mm3 (4.6-6.20); White Blood Count 5.8 K/mm3 (4.5-10.0)
[2024-12-01 06:22] LABS: Anion Gap 7 mmol/L (4-12); Blood Urea Nitrogen 11 mg/dL (9-20); Calcium 9.2 mg/dL (8.4-10.2); Carbon Dioxide 29 mmol/L (22-30); Chloride 100 mmol/L (98-107); Estimated CRCL calculation 73 ml/min; Estimated Glomerular Filt Rate > 60; Glucose 96 mg/dL (65-110); Magnesium 1.8 mg/dL (1.6-2.3); Potassium 3.4 mmol/L (3.4-5.0); Sodium 136 mmol/L (137-145)
[2024-12-01] MEDS: ASPIRIN 81 MG CHEWABLE TABLET PO (08:36)
[2024-12-01] MEDS: CHOLECALCIFEROL (VITAMIN D3) 25 MCG (1,000 UNITS) TABLET 50 MCG PO (08:37)
[2024-12-01] MEDS: EMPAGLIFLOZIN 10 MG TABLET PO (08:37)
[2024-12-01] MEDS: VENLAFAXINE HCL XR 75 MG CAP.ER.24H PO ×2 (08:37→20:03)
[2024-12-01] MEDS: GABAPENTIN 300 MG CAPSULE PO ×2 (08:37→20:03)
[2024-12-01] MEDS: ENOXAPARIN 40 MG/0.4 ML SYRINGE SUB-Q (08:38)
[2024-12-01] MEDS: INSULIN GLARGINE (*BKC) 100 UNITS/ML 28 UNITS SUB-Q (08:38)
[2024-12-01 09:35] LABS: Alanine Aminotransferase 273 U/L (6-50); Albumin Level 3.5 g/dL (3.5-5.1); Alkaline Phosphatase 95 U/L (38-126); Aspartate Amino Transferase 257 U/L (17-59); Bilirubin,Total 0.5 mg/dL (0.2-1.3); Total Protein 6.9 g/dL (6.3-8.2)
--- NOTE | 2024-12-01 09:35 | PM.CNCAR ---
Assessment and Plan Assessment and plan (1) HTN (hypertension): Code(s): I10 - Essential (primary) hypertension Status: Acute Assessment and Plan: Stable. If BP is high go with another BP medication that won't slow down HR including Losartan. (2) Hyperlipidemia: Code(s): E78.5 - Hyperlipidemia, unspecified Status: Acute Assessment and Plan: On Atorvastatin (3) Bradycardia: Code(s): R00.1 - Bradycardia, unspecified Status: Acute Assessment and Plan: Only while sleeping which is OK. Stop Metoprolol to not contribute some more to bradycardia. No further cardiac workup is needed. History of Present Illness History of Present Illness Consult date/time: 12/01/24 09:35 Reason For Visit: Pneumonia, pulmonary embolism, UTI Narrative: 74 yr old man presented to ER on 11/27/24 with weakness. He has a history of hypertension, PEDRO, dyslipidemia, DM. Consult for low HR down to 27 bpm while sleeping with CPAP. During the day his HR is OK at least 60 bpm. He can walk 2 blocks without any problems. Denies chest pain, sob, orthopnea, PND, edema, dizziness, palpitations. Review of Systems Review of Systems: All systems reviewed & are unremarkable except as noted in HPI and below Constitutional: Constitutional: Reports as per HPI, Denies chills, Reports fatigue and Denies fever(s) Cardiovascular: Cardiovascular: Reports as per HPI, Denies chest pain and Denies irregular heart rhythm Respiratory: Respiratory: Reports as per HPI and Denies dyspnea Gastrointestinal: Gastrointestinal: Reports as per HPI and Denies abdominal pain Genitourinary: Genitourinary: Reports as per HPI and Denies dysuria [facility] Past Medical History Medical History (Updated 12/01/24 @ 09:[address] DO) T2DM (type 2 diabetes mellitus) BPH (benign prostatic hyperplasia) Hyperlipidemia HTN (hypertension) Depression Suicidal thoughts Surgical History Surgical History Pituitary tumor History of trauma of chest Social History Social History Smoking status: Former smoker Tobacco type: cigarettes Smoking end date: 11/22/24 Alcohol intake: current Drinks per week: 2 Substance use: former Substance use type: marijuana Last use: 10/27/24 Lack of Transportation: No Lack of Food: Never True Current Housing: I Have Housing Concerned About Future Housing: No Difficulty Paying Gas/Electric Bills: No Difficulty Paying for Meds: No Currently Unemployed: No Education: Associate Degree Difficulty w/ Childcare or Family Care: No Living arrangements: with family Occupation/Education: occupation Spiritual care concerns: No Meds Home Medications and Allergies Home Medications ?Medication ?Instructions ?Recorded ?Confirmed ?Type amlodipine 10 mg tablet 10 mg PO HS 12/04/19 11/27/24 History atorvastatin 80 mg tablet 40 mg PO QPM 12/04/19 11/27/24 History cholecalciferol (vitamin D3) 50 50 mcg PO DAILY 12/04/19 11/27/24 History mcg (2,000 unit) tablet (Vitamin D3) desmopressin 0.1 mg tablet 0.1 mg PO BID 12/04/19 11/27/24 History gabapentin 300 mg capsule 300 mg PO BID 12/04/19 11/27/24 History insulin aspart U-100 100 unit/mL 10 unit subcut BIDWMEAL 12/04/19 11/30/24 History (3 mL) subcutaneous pen (Novolog FlexPen U-100 Insulin aspart) insulin glargine 100 unit/mL 30 unit subcut DAILY 12/04/19 11/30/24 History subcutaneous solution (Lantus U-100 Insulin) lisinopril 40 mg tablet 10 mg PO DAILY 12/04/19 11/30/24 History melatonin 3 mg tablet 3 mg PO HS Sleep 12/04/19 11/30/24 History metoprolol tartrate 25 mg tablet 12.5 mg PO BID 12/04/19 11/30/24 History quetiapine 200 mg tablet 150 mg PO HS 12/04/19 11/30/24 History tamsulosin 0.4 mg capsule 0.4 mg PO HS 12/04/19 11/27/24 History trazodone 100 mg tablet 100 mg PO HS mood 12/04/19 11/30/24 History venlafaxine 75 mg capsule,extended 75 mg PO BID 12/04/19 11/27/24 History release 24 hr aspirin 81 mg capsule 81 mg PO DAILY 11/30/24 11/30/24 History latanoprost 0.005 % eye drops 1 drp EACH EYE QPM 11/30/24 11/30/24 History levothyroxine 112 mcg tablet 112 mcg PO DAILY 11/30/24 11/30/24 History (Synthroid) Allergies Allergy/AdvReac Type Severity Reaction Status Date / Time radish Allergy Mild Itching Verified 11/27/24 06:57 Vital Signs Vital Signs - 24 hr 11/30/24 12:06 11/30/24 14:00 11/30/24 16:02 Temperature 97.5 F L Pulse Rate 67 87 76 Respiratory Rate 18 Blood Pressure 141/77 H Pulse Oximetry 97 Oxygen Delivery Fraction of Inspired Oxygen 11/30/24 20:00 11/30/24 20:00 11/30/24 20:34 Temperature Pulse Rate 72 76 Respiratory Rate Blood Pressure Pulse Oximetry Oxygen Delivery CPAP Fraction of Inspired Oxygen 11/30/24 21:55 11/30/24 21:57 11/30/24 21:59 Temperature 98.0 F Pulse Rate 45 L 70 39 L Respiratory Rate 18 Blood Pressure 128/62 Pulse Oximetry 95 Oxygen Delivery Fraction of Inspired Oxygen 11/30/24 22:11 11/30/24 23:56 12/01/24 00:00 Temperature Pulse Rate 75 27 L 53 L Respiratory Rate 20 Blood Pressure Pulse Oximetry 99 Oxygen Delivery Room Air Fraction of Inspired Oxygen 21 12/01/24 00:00 12/01/24 01:39 12/01/24 04:00 Temperature Pulse Rate 80 81 57 L Respiratory Rate Blood Pressure Pulse Oximetry 95 95 Oxygen Delivery Fraction of Inspired Oxygen 12/01/24 05:31 12/01/24 06:00 Temperature 98.2 F Pulse Rate 65 67 Respiratory Rate 20 18 Blood Pressure 117/60 Pulse Oximetry 94 94 Oxygen Delivery Room Air Fraction of Inspired Oxygen Exam Const: General: cooperative, healthy appearing and comfortable Resp: Auscultation: clear to auscultation bilaterally, no crackles, no rales, no rhonchi and no wheezes Cardio: Rate: regular rate Rhythm: regular rhythm Heart sounds: no murmurs Peripheral pulses: dorsalis pedis present GI: GI Palp: No abdominal tenderness and Yes Soft to palpation Neuro: General: oriented to person, oriented to place and oriented to time Extrem: Right lower extremity: no edema Left lower extremity: no edema Results Labs and Meds 12/01/24 05:29 12/01/24 05:29 Lab results: Cardiac Enzymes 11/30/24 Range/Units 14:55 AST 308 H (17-59) U/L CBC 11/30/24 12/01/24 Range/Units 14:55 05:29 WBC 6.0 5.8 (4.5-10.0) K/mm3 RBC 3.99 L 4.02 L (4.6-6.20) M/mm3 Hgb 12.1 L 12.3 L (14.0-18.0) g/dL Hct 36.1 L 36.5 L (42.0-52.0) % Plt Count 271 286 (150-375) k/mm3 Comprehensive Metabolic Panel 11/30/24 12/01/24 Range/Units 14:55 05:29 Sodium 134 L 136 L (137-145) mmol/L Potassium 3.5 3.4 (3.4-5.0) mmol/L Chloride 102 100 (98-107) mmol/L Carbon Dioxide 26 29 (22-30) mmol/L BUN 13 11 (9-20) mg/dL Creatinine 0.96 1.13 (0.7-1.3) mg/dL Glucose 153 H 96 (65-110) mg/dL Calcium 9.1 9.2 (8.4-10.2) mg/dL AST 308 H (17-59) U/L ALT 276 H (6-50) U/L Alkaline Phosphatase 102 (38-126) U/L Total Protein 6.9 (6.3-8.2) g/dL Albumin 3.6 (3.5-5.1) g/dL Intake and Output 11/30/24 12/01/24 12/01/24 23:59 07:59 15:59 Intake Total 1310 100 Output Total 4050 1100 Balance -2740 -1000 Intake: Oral 1310 100 Output: Catheter Urine 4050 1100 Urethral Catheter 4050 1100 Other: Number of Bowel Movements Today 1
[2024-12-01] MEDS: LEVOTHYROXINE SODIUM 112 MCG TABLET PO (11:18)
--- NOTE | 2024-12-01 14:46 | PM.IMPN ---
Progress Note: A&P Assessment and Plan (1) UTI (urinary tract infection): Code(s): N39.0 - Urinary tract infection, site not specified Status: Acute Assessment and Plan: UA shows urine nitrite positive, 2+ leukocyte esterases, more than 100 urine wbc's 4+ urine bacteria Urine culture grew Gram-negative bacilli Completed ceftriaxone (2) BPH (benign prostatic hyperplasia): Code(s): N40.0 - Benign prostatic hyperplasia without lower urinary tract symptoms Status: Acute Assessment and Plan: CT abdomen pelvis revealed prostate enlargement, history of self straight catheterization-received supplies from [facility] On clinical exam, no pain or tenderness Continue home regimen tamsulosin Removed folic acid today, void trial, bladder scan post void shows 200 cc in the bladder Urology follow-up scheduled (3) Hypomagnesemia: Code(s): E83.42 - Hypomagnesemia Status: Acute Assessment and Plan: Resolved (4) Sepsis: Code(s): A41.9 - Sepsis, unspecified organism Status: Acute Assessment and Plan: Hemodynamically stable Repeat lactic acid has normalized Continue to monitor (5) Lactic acidosis: Code(s): E87.20 - Acidosis, unspecified Status: Acute Assessment and Plan: Repeat lactate 1 point (6) Insulin dependent type 2 diabetes mellitus: Code(s): E11.9 - Type 2 diabetes mellitus without complications; Z79.4 - group home (current) use of insulin Status: Acute Assessment and Plan: A1c 7.9 in this admission Patient takes Lantus 28 units daily and NovoLog 28 units before breakfast CGM was attempted in his PCP office [facility] the [facility]-but fall off after two days This morning, BS 69 will reduce lantus from35 units to 28 units daily Hold Novolog 28 units for now POCT, hypoglycemia protocol He will resume his home GLP receptor agonists returning home Continue Jardiance (7) Elevated liver enzymes: Code(s): R74.8 - Abnormal levels of other serum enzymes Status: Acute Assessment and Plan: Denies abdominal pain, diarrhea Likely secondary to medication side effect Continue to monitor CMP daily (8) Asymptomatic bradycardia: Code(s): R00.1 - Bradycardia, unspecified Status: Acute Assessment and Plan: Overnight he had 20s-30s heart rate without pauses, metoprolol was discontinued, cardiology consulted and echo ordered Follow 2D echo, he will need Cardiology follow-up as above. Subjective Date/time seen: 12/01/24 14:46 Interval history: Patient had bradycardia to 20s-30s without symptom while his sleepy overnight. EKG obtained and no new development. Cardiology consulted in the morning, recommended discontinuing metoprolol which is his home medication. 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 This morning he was is asymptomatic, denies chest pain/shortness of breath. Discussed with patient to keep him here to perform echocardiogram and discharged in the morning. Exam Narrative: APPEARANCE: No acute distress, obese EYES: EOMI HEENT: Normocephalic, atraumatic, OMM RESPIRATORY: No respiratory distress Clear to auscultation bilaterally with no rhonchi wheezing or rales. CARDIOVASCULAR: RRR, S1 and S2 without murmurs rubs or gallops. ABDOMINAL: Soft, nontender, nondistended, no rebound or guarding Musculoskeletal: range of motion to the left lower extremity is limited due to pain of the left ankle. No bony tenderness throughout either leg and no deformities. NEURO: Awake and alert. Following commands, speech normal, no focal deficits SKIN:: Warm, dry. No rashes lesions or abrasions PSYCHIATRIC: Normal affect/mood, Objective Data Vital Signs Vital Signs: Vital Signs - 24 hr 11/30/24 16:02 11/30/24 20:00 11/30/24 20:00 Temperature Pulse Rate 76 72 Respiratory Rate Blood Pressure Pulse Oximetry Oxygen Delivery CPAP Fraction of Inspired Oxygen 11/30/24 20:34 11/30/24 21:55 11/30/24 21:57 Temperature 36.7 C Pulse Rate 76 45 L 70 Respiratory Rate 18 Blood Pressure 128/62 Pulse Oximetry 95 Oxygen Delivery Fraction of Inspired Oxygen 11/30/24 21:59 11/30/24 22:11 11/30/24 23:56 Temperature Pulse Rate 39 L 75 27 L Respiratory Rate 20 Blood Pressure Pulse Oximetry 99 Oxygen Delivery Room Air Fraction of Inspired Oxygen 21 12/01/24 00:00 12/01/24 00:00 12/01/24 01:39 Temperature Pulse Rate 53 L 80 81 Respiratory Rate Blood Pressure Pulse Oximetry 95 95 Oxygen Delivery Fraction of Inspired Oxygen 12/01/24 04:00 12/01/24 05:31 12/01/24 06:00 Temperature 36.8 C Pulse Rate 57 L 65 67 Respiratory Rate 20 18 Blood Pressure 117/60 Pulse Oximetry 94 94 Oxygen Delivery Room Air Fraction of Inspired Oxygen 12/01/24 08:30 12/01/24 08:30 12/01/24 12:00 Temperature Pulse Rate 85 74 Respiratory Rate Blood Pressure Pulse Oximetry Oxygen Delivery Room Air Fraction of Inspired Oxygen Intake/Output Intake/Output: Intake & Output 11/28/24 11/29/24 11/30/24 12/01/24 23:59 23:59 23:59 23:59 Intake Total 1110 4360 2230 100 Output Total 1200 7900 6050 1850 Balance 90 -3540 -3820 -1670 Meds/Results Medications: Active Medications Generic Name Dose Route Start Last Admin Trade Name Freq PRN Reason Stop Dose Admin Acetaminophen 650 mg 11/27/24 09:31 11/27/24 14:59 Acetaminophen 325 Mg Tablet PO 650 mg Q4H PRN Administration Mild Pain (1-3) Amlodipine Besylate 10 mg 11/27/24 21:00 11/30/24 20:35 Amlodipine Besylate 10 Mg Tablet PO 10 mg HS CARLOS Administration Aspirin 81 mg 12/01/24 09:00 12/01/24 08:36 Aspirin 81 Mg Chewable Tablet PO 81 mg DAILY CARLOS Administration Atorvastatin Calcium 40 mg 11/27/24 18:00 11/30/24 18:48 Atorvastatin 40 Mg Tablet PO 40 mg QPM CARLOS Administration Dextrose 12.5 gm 11/27/24 12:11 Dextrose 50% 25 Gm/50 Ml Syringe IV PUSH PRN PRN Hypoglycemia Protocol Empagliflozin 10 mg 11/29/24 09:00 12/01/24 08:37 Empagliflozin 10 Mg Tablet PO 10 mg DAILY CARLOS Administration Enoxaparin Sodium 40 mg 11/27/24 10:00 12/01/24 08:38 Enoxaparin 40 Mg/0.4 Ml Syringe SUB-Q 40 mg DAILY CARLOS Administration Gabapentin 300 mg 11/27/24 21:00 12/01/24 08:37 Gabapentin 300 Mg Capsule PO 300 mg Q12HR CARLOS Administration Glucagon 1 mg 11/27/24 12:11 Glucagon For Inj 1 Mg Vial IM PRN PRN Hypoglycemia Protocol Glucose 15 gm 11/27/24 12:11 Glucose Oral Gel 15 Gm Of Glucse In 37.5 Gm Tube PO PRN PRN Hypoglycemia Protocol Dextrose 1,000 mls @ 100 mls/hr 11/27/24 12:11 Dextrose 5% 1,000 Ml IVPB PRN PRN Hypoglycemia Protocol Insulin Aspart 2 - 5 units 11/27/24 12:00 12/01/24 11:37 Insulin Aspart (*Bkc) 100 Units/Ml SUB-Q Not Given TIDWM CARLOS Protocol Insulin Glargine 28 units 11/30/24 09:00 12/01/24 08:38 Insulin Glargine (*Bkc) 100 Units/Ml SUB-Q 28 units DAILY CARLOS Administration Latanoprost 1 drop 12/01/24 18:00 Latanoprost 0.005% Op Soln 2.5 Ml Btl EACH EYE QPM CARLOS Levothyroxine Sodium 112 mcg 12/01/24 11:00 12/01/24 11:18 Levothyroxine Sodium 112 Mcg Tablet PO 112 mcg DAILY@0630 CARLOS Administration Lisinopril 20 mg 11/28/24 09:00 12/01/24 08:37 Lisinopril 20 Mg Tablet PO 20 mg DAILY CARLOS Administration Melatonin 9 mg 11/27/24 21:00 11/30/24 20:34 Melatonin 3 Mg Tablet PO 9 mg HS CARLOS Administration Perflutren Lipid Microsphere 0 ml 12/01/24 02:00 Perflutren Lipid Microspheres 1.5 Ml Vial Diluted To 10 Ml Total Volume IV PUSH 12/04/24 02:01 ONCE PRN adequate visualization Protocol Polyethylene Glycol 17 gm 11/29/24 10:15 Polyethylene Glycol 3350 17 Gm Powd.Pack PO QAM PRN Constipation Quetiapine Fumarate 100 mg 11/27/24 21:00 11/30/24 20:35 Quetiapine Fumarate 100 Mg Tablet PO 100 mg HS CARLOS Administration Tamsulosin HCl 0.4 mg 11/27/24 21:00 11/30/24 20:34 Tamsulosin Hcl 0.4 Mg Capsule PO 0.4 mg HS CARLOS Administration Trazodone HCl 100 mg 11/27/24 16:16 11/30/24 20:34 Trazodone Hcl 50 Mg Tablet PO 100 mg HS PRN Administration Sleep Venlafaxine HCl 75 mg 11/27/24 21:00 12/01/24 08:37 Venlafaxine Hcl Xr 75 Mg Cap.Er.24h PO 75 mg Q12HR CARLOS Administration Vitamin D 50 mcg 11/28/24 09:00 12/01/24 08:37 Cholecalciferol (Vitamin D3) 25 Mcg (1,000 Units) Tablet PO 50 mcg DAILY CARLOS Administration Radiology Results: ITS Impressions Head CT 11/27/24 05:42 Impression: No significant abnormality seen. Chest X-Ray 11/27/24 05:47 Impression: Clear lungs. Chest/Abdomen/Pelvis CTA 11/27/24 05:55 Impression: No definite pulmonary embolus identified. Suspected cystitis. Correlate with urinalysis. Minimal bilateral pleural effusions with mild bibasilar atelectatic change. Cholelithiasis. Enlarged prostate gland. Labs Labs: Laboratory Results - last 24 hr 11/30/24 11/30/24 11/30/24 14:55 16:23 21:15 WBC 6.0 RBC 3.99 L Hgb 12.1 L Hct 36.1 L MCV 90.5 MCH 30.3 MCHC 33.5 RDW 13.0 Plt Count 271 MPV 10.0 Sodium 134 L Potassium 3.5 Chloride 102 Carbon Dioxide 26 Anion Gap 6 BUN 13 Creatinine 0.96 Estim Creat Clear Calc 85 Estimated GFR > 60 Glucose 153 H POC Capillary Glucose 127 H 129 H Calcium 9.1 Magnesium Total Bilirubin 0.5 Direct Bilirubin AST 308 H ALT 276 H Alkaline Phosphatase 102 Total Protein 6.9 Albumin 3.6 12/01/24 12/01/24 12/01/24 05:29 07:45 11:35 WBC 5.8 RBC 4.02 L Hgb 12.3 L Hct 36.5 L MCV 90.8 MCH 30.6 MCHC 33.7 RDW 13.1 Plt Count 286 MPV 9.7 Sodium 136 L Potassium 3.4 Chloride 100 Carbon Dioxide 29 Anion Gap 7 BUN 11 Creatinine 1.13 Estim Creat Clear Calc 73 Estimated GFR > 60 Glucose 96 POC Capillary Glucose 121 H 140 H Calcium 9.2 Magnesium 1.8 Total Bilirubin 0.5 Direct Bilirubin 0.0 AST 257 H ALT 273 H Alkaline Phosphatase 95 Total Protein 6.9 Albumin 3.5
[2024-12-01] MEDS: ATORVASTATIN 40 MG TABLET PO (17:41)
[2024-12-01] MEDS: LATANOPROST 0.005% OP SOLN 2.5 ML BTL 1 DROP EACH EYE (17:41)
[2024-12-01 18:07] LABS: Osmolality, Urine 153 mOsmol/kg (.)
[2024-12-01] MEDS: TAMSULOSIN HCL 0.4 MG CAPSULE PO (20:04)
[2024-12-01] MEDS: MELATONIN 3 MG TABLET 9 MG PO (20:04)
[2024-12-02] VITALS: PULSE 66
--- NOTE | 2024-12-02 | ECHO_ITS ---
Patient Info Name: Be Summers Age: 74 years : 1950 Gender: Male Ht: 74 in Wt: 266 lbs BSA: 2.55 m2 HR: 71 bpm BP: 127 / 57 mmHg Technical Quality: Good Exam Date: 12/02/2024 9:36 AM Patient Status: I Admit Date: 11/27/2024 Exam Type: CA echo doppler color flow Complete two-dimensional, color flow and Doppler transthoracic echocardiogram is performed. Staff Referring Physician: Virginia Zimmer Oven Roaster: Syeda Giang Attending Provider: Jenni Aleman DO Summary 1. Complete two-dimensional, color flow and Doppler transthoracic echocardiogram is performed. 2. Left ventricular chamber dimension is normal. 3. Left ventricular systolic function is normal, estimated at 65-70. 4. There is moderate concentric increased left ventricular wall thickness. 5. The left ventricular diastolic function is grade I diastolic dysfunction. 6. E/e' 6 is not elevated. 7. The prox ascending aorta size is borderline dilated at 4. 2cm. Left Ventricle E/e' 6 is not elevated. Left ventricular chamber dimension is normal. Left ventricular systolic function is normal, estimated at 65-70. There is moderate concentric increased left ventricular wall thickness. The left ventricular diastolic function is grade I diastolic dysfunction. Right Ventricle Right ventricular chamber dimension is normal. Right ventricular systolic function is normal and with normal TAPSE 2.1 cm. Left Atria Left atrial chamber dimension is normal. Right Atria Right atrial chamber dimension is normal. Aortic Valve The aortic valve is trileaflet. There is no aortic valve stenosis. There is no aortic valve regurgitation. Pulmonic Valve There is no pulmonic regurgitation. Mitral Valve There is no mitral valve stenosis. There is no mitral valve regurgitation. Tricuspid Valve There is no tricuspid valve regurgitation. Pericardium/Pleural There is no pericardial effusion. Inferior Vena Cava Normal inferior vena cava with >50% collapse upon inspiration consistent with normal right atrial pressure, 5 mmHg. Aorta The aortic root size at the sinus of Valsalva is normal. The prox ascending aorta size is borderline dilated at 4. 2cm. Left Ventricular Outflow Tract Name Value Normal LVOT 2D LVOT Diameter 2.3 cm LVOT Doppler LVOT Peak Velocity 110 cm/s LVOT Peak Gradient 5 mmHg LVOT Mean Gradient 3 mmHg LVOT VTI 26 cm LVOT VTI/AV VTI Ratio 0.9 LVOT Stroke Volume 106 ml LVOT CO 20.6 l/min LVOT CI 8.1 l/min/m2 Pulmonic Valve Name Value Normal PV Doppler PV Peak Velocity 116 cm/s PV Peak Gradient 5 mmHg Mitral Valve Name Value Normal MV Diastolic Function MV E Peak Velocity 57 cm/s MV A Peak Velocity 84 cm/s MV E/A 0.7 MV Decel Time (PW) 303 ms MV Annular TDI MV E/e' (Septal) 9.4 MV E/e' (Lateral) 5.4 MV E/e' (Average) 7.4 Tricuspid Valve Name Value Normal Estimated PAP/RSVP RA Pressure 5 mmHg <=5 TV Annular TDI TV Lateral Jazmín s' Velocity 16.1 cm/s >=9.5 Aorta Name Value Normal Ascending Aorta Ao Root Diameter (MM) 4.3 cm Ao Root Diam Index (MM) 1.7 cm/m2 Aortic Valve Name Value Normal AV Doppler AV Peak Velocity 120 cm/s AV Peak Gradient 6 mmHg AV Mean Gradient 4 mmHg AV VTI 29 cm AV Area (Cont Eq VTI) 3.7 cm2 >=3.0 AV Area (Cont Eq Parish) 3.8 cm2 AV DI (Parish) 0.92 AV Regurgitation 2D LVOT Area 4.1 cm2 Ventricles Name Value Normal LV Dimensions 2D/MM IVS Diastolic Thickness (2D) 1.5 cm 0.6-1.0 LVID Diastole (2D) 4.2 cm 4.2-5.8 LVIW Diastolic Thickness (2D) 1.1 cm 0.6-1.0 LVID Systole (2D) 2.6 cm 2.5-4.0 LVOT Diameter 2.3 cm LV Mass (2D Cubed) 196.86 g 88.00-224.00 LV Mass Index (2D Cubed) 77 g/m2 49-115 Relative Wall Thickness (2D) 0.54 <=0.42 LV Fractional Shortening/Ejection Fraction 2D/MM LV Fractional Shortening (2D) 37 % 25-43 LV EF (2D Teichholz) 67 % LV Diastolic Volume (4C MOD) 90 ml LV EF (4C MOD) 69 % LV Diastolic Volume (2C MOD) 120 ml LV EF (2C MOD) 62 % LV Diastolic Volume (BP MOD) 105 ml 62-150 LV Diastolic Volume Index (BP MOD) 41 ml/m2 34-74 LV Systolic Volume (BP MOD) 35 ml 21-61 LV Systolic Volume Index (BP MOD) 14 ml/m2 11-31 LV EF (BP MOD) 67 % 52-72 LV Diastolic Length (4C) 9.0 cm LV Systolic Length (4C) 7.3 cm LV Stroke Volume (4C MOD) 62 ml RV Dimensions 2D/MM RVID Diastole (2D) 3.4 cm 2.1-3.5 Atria Name Value Normal LA Dimensions LA Volume (4C A-L) 64 ml LA Volume (BP A-L) 66 ml RA Dimensions RA Systolic Major Atco Length (4C) 5.0 cm 2.1-2.7 RA Area (4C) 14.5 cm2 <=18.0 Report Signatures
[2024-12-02 04:00] VITALS: PULSE 64
[2024-12-02 05:52] VITALS: BP 127/57; PULSE 66; RESP 14; TEMP 36.6; O2SAT 96
[2024-12-02 05:54] LABS: Hematocrit 36.2 % (42.0-52.0); Hemoglobin 12.1 g/dL (14.0-18.0); Mean Corpuscular HGB Conc 33.4 g/dl (32-36); Mean Corpuscular Hemoglobin 30.5 pg (26-34); Mean Corpuscular Volume 91.2 fl (80-100); Platelet Count Result 333 k/mm3 (150-375); Red Blood Count 3.97 M/mm3 (4.6-6.20); White Blood Count 6.8 K/mm3 (4.5-10.0)
[2024-12-02] MEDS: LEVOTHYROXINE SODIUM 112 MCG TABLET PO (06:02)
[2024-12-02 06:07] LABS: Anion Gap 7 mmol/L (4-12); Blood Urea Nitrogen 12 mg/dL (9-20); Calcium 9.1 mg/dL (8.4-10.2); Carbon Dioxide 29 mmol/L (22-30); Chloride 101 mmol/L (98-107); Estimated CRCL calculation 75 ml/min; Estimated Glomerular Filt Rate > 60; Glucose 121 mg/dL (65-110); Magnesium 1.7 mg/dL (1.6-2.3); Potassium 3.4 mmol/L (3.4-5.0); Sodium 137 mmol/L (137-145)
[2024-12-02 08:00] VITALS: PULSE 78
--- NOTE | 2024-12-02 08:01 | P.PNCA_ITS ---
Progress Note: A&P Assessment and Plan (1) HTN (hypertension): Code(s): I10 - Essential (primary) hypertension Status: Acute Assessment and Plan: Stable. (2) Hyperlipidemia: Code(s): E78.5 - Hyperlipidemia, unspecified Status: Acute Assessment and Plan: On Atorvastatin (3) Bradycardia: Code(s): R00.1 - Bradycardia, unspecified Status: Acute Assessment and Plan: Only while sleeping which is OK. Stopped Metoprolol to not contribute some more to bradycardia. Echo was ordered. If that is OK, [facility] and f/u with me in 2 weeks. Subjective Date/time seen: 12/02/24 08:01 Interval history: Denies dizziness, chest pain or sob. Exam Const: General: cooperative, healthy appearing and comfortable Orientation/consciousness: oriented to person, oriented to place and oriented to time Resp: Auscultation: clear to auscultation bilaterally, no crackles, no rales, no rhonchi and no wheezes Cardio: Rate: regular rate Rhythm: regular rhythm Heart sounds: no murmurs Peripheral pulses: dorsalis pedis present Neuro: General: oriented to person, oriented to place and oriented to time Extrem: Right lower extremity: no edema Left lower extremity: no edema Objective Data Vital Signs Vital Signs: Vital Signs - 24 hr 12/01/24 08:30 12/01/24 08:30 12/01/24 12:00 Temperature Pulse Rate 85 74 Respiratory Rate Blood Pressure Pulse Oximetry Oxygen Delivery Room Air Fraction of Inspired Oxygen 12/01/24 14:00 12/01/24 16:00 12/01/24 20:00 Temperature 97.3 F L Pulse Rate 73 102 H Respiratory Rate 20 Blood Pressure 149/82 H Pulse Oximetry 96 Oxygen Delivery Room Air Fraction of Inspired Oxygen 21 12/01/24 20:00 12/01/24 20:59 12/01/24 21:29 Temperature 97.2 F L Pulse Rate 73 75 Respiratory Rate 16 Blood Pressure 128/97 H Pulse Oximetry 96 96 Oxygen Delivery Room Air Fraction of Inspired Oxygen 12/02/24 00:00 12/02/24 04:00 12/02/24 05:52 Temperature 97.8 F Pulse Rate 66 64 66 Respiratory Rate 14 Blood Pressure 127/57 L Pulse Oximetry 96 Oxygen Delivery Fraction of Inspired Oxygen Intake/Output Intake/Output: Intake & Output 08/22/25 08/23/25 08/24/25 08/25/25 23:59 23:59 23:59 23:59 Intake Total 4360 2230 1680 300 Output Total 7900 6050 2600 1500 Balance -6082 -2933 -765 -7683 Meds/Results Medications: Active Medications Generic Name Dose Route Start Last Admin Trade Name Freq PRN Reason Stop Dose Admin Acetaminophen 650 mg 11/27/24 09:31 11/27/24 14:59 Acetaminophen 325 Mg Tablet PO 650 mg Q4H PRN Administration Mild Pain (1-3) Amlodipine Besylate 10 mg 11/27/24 21:00 12/01/24 20:04 Amlodipine Besylate 10 Mg Tablet PO 10 mg HS CARLOS Administration Aspirin 81 mg 12/01/24 09:00 12/01/24 08:36 Aspirin 81 Mg Chewable Tablet PO 81 mg DAILY CARLOS Administration Atorvastatin Calcium 40 mg 11/27/24 18:00 12/01/24 17:41 Atorvastatin 40 Mg Tablet PO 40 mg QPM CARLOS Administration Dextrose 12.5 gm 11/27/24 12:11 Dextrose 50% 25 Gm/50 Ml Syringe IV PUSH PRN PRN Hypoglycemia Protocol Empagliflozin 10 mg 11/29/24 09:00 12/01/24 08:37 Empagliflozin 10 Mg Tablet PO 10 mg DAILY CARLOS Administration Enoxaparin Sodium 40 mg 11/27/24 10:00 12/01/24 08:38 Enoxaparin 40 Mg/0.4 Ml Syringe SUB-Q 40 mg DAILY CARLOS Administration Gabapentin 300 mg 11/27/24 21:00 12/01/24 20:03 Gabapentin 300 Mg Capsule PO 300 mg Q12HR CARLOS Administration Glucagon 1 mg 11/27/24 12:11 Glucagon For Inj 1 Mg Vial IM PRN PRN Hypoglycemia Protocol Glucose 15 gm 11/27/24 12:11 Glucose Oral Gel 15 Gm Of Glucse In 37.5 Gm Tube PO PRN PRN Hypoglycemia Protocol Dextrose 1,000 mls @ 100 mls/hr 11/27/24 12:11 Dextrose 5% 1,000 Ml IVPB PRN PRN Hypoglycemia Protocol Insulin Aspart 2 - 5 units 11/27/24 12:00 12/02/24 07:54 Insulin Aspart (*Bkc) 100 Units/Ml SUB-Q Not Given TIDWM CARLOS Protocol Insulin Glargine 28 units 11/30/24 09:00 12/01/24 08:38 Insulin Glargine (*Bkc) 100 Units/Ml SUB-Q 28 units DAILY CARLOS Administration Latanoprost 1 drop 12/01/24 18:00 12/01/24 17:41 Latanoprost 0.005% Op Soln 2.5 Ml Btl EACH EYE 1 drop QPM CARLOS Administration Levothyroxine Sodium 112 mcg 12/01/24 11:00 12/02/24 06:02 Levothyroxine Sodium 112 Mcg Tablet PO 112 mcg DAILY@0630 CARLOS Administration Lisinopril 20 mg 11/28/24 09:00 12/01/24 08:37 Lisinopril 20 Mg Tablet PO 20 mg DAILY CARLOS Administration Melatonin 9 mg 11/27/24 21:00 12/01/24 20:04 Melatonin 3 Mg Tablet PO 9 mg HS CARLOS Administration Perflutren Lipid Microsphere 0 ml 12/01/24 02:00 Perflutren Lipid Microspheres 1.5 Ml Vial Diluted To 10 Ml Total Volume IV PUSH 12/04/24 02:01 ONCE PRN adequate visualization Protocol Polyethylene Glycol 17 gm 11/29/24 10:15 Polyethylene Glycol 3350 17 Gm Powd.Pack PO QAM PRN Constipation Quetiapine Fumarate 100 mg 11/27/24 21:00 12/01/24 20:04 Quetiapine Fumarate 100 Mg Tablet PO 100 mg HS CARLOS Administration Tamsulosin HCl 0.4 mg 11/27/24 21:00 12/01/24 20:04 Tamsulosin Hcl 0.4 Mg Capsule PO 0.4 mg HS CARLOS Administration Trazodone HCl 100 mg 11/27/24 16:16 12/01/24 20:04 Trazodone Hcl 50 Mg Tablet PO 100 mg HS PRN Administration Sleep Venlafaxine HCl 75 mg 11/27/24 21:00 12/01/24 20:03 Venlafaxine Hcl Xr 75 Mg Cap.Er.24h PO 75 mg Q12HR CARLOS Administration Vitamin D 50 mcg 11/28/24 09:00 12/01/24 08:37 Cholecalciferol (Vitamin D3) 25 Mcg (1,000 Units) Tablet PO 50 mcg DAILY CARLOS Administration Radiology Results: ITS Impressions Head CT 11/27/24 05:42 Impression: No significant abnormality seen. Chest X-Ray 11/27/24 05:47 Impression: Clear lungs. Chest/Abdomen/Pelvis CTA 11/27/24 05:55 Impression: No definite pulmonary embolus identified. Suspected cystitis. Correlate with urinalysis. Minimal bilateral pleural effusions with mild bibasilar atelectatic change. Cholelithiasis. Enlarged prostate gland. Labs Labs: Laboratory Results - last 24 hr 11/29/24 12/01/24 12/01/24 11:26 05:29 11:35 WBC RBC Hgb Hct MCV MCH MCHC RDW Plt Count MPV Sodium Potassium Chloride Carbon Dioxide Anion Gap BUN Creatinine Estim Creat Clear Calc Estimated GFR Glucose POC Capillary Glucose 140 H Calcium Magnesium Total Bilirubin 0.5 Direct Bilirubin 0.0 AST 257 H ALT 273 H Alkaline Phosphatase 95 Total Protein 6.9 Albumin 3.5 Urine Osmolality 153 12/01/24 12/01/24 12/02/24 16:55 19:35 05:29 WBC 6.8 RBC 3.97 L Hgb 12.1 L Hct 36.2 L MCV 91.2 MCH 30.5 MCHC 33.4 RDW 13.1 Plt Count 333 MPV 9.8 Sodium 137 Potassium 3.4 Chloride 101 Carbon Dioxide 29 Anion Gap 7 BUN 12 Creatinine 1.09 Estim Creat Clear Calc 75 Estimated GFR > 60 Glucose 121 H POC Capillary Glucose 149 H 219 H Calcium 9.1 Magnesium 1.7 Total Bilirubin Direct Bilirubin AST ALT Alkaline Phosphatase Total Protein Albumin Urine Osmolality 12/02/24 07:44 WBC RBC Hgb Hct MCV MCH MCHC RDW Plt Count MPV Sodium Potassium Chloride Carbon Dioxide Anion Gap BUN Creatinine Estim Creat Clear Calc Estimated GFR Glucose POC Capillary Glucose 136 H Calcium Magnesium Total Bilirubin Direct Bilirubin AST ALT Alkaline Phosphatase Total Protein Albumin Urine Osmolality
[2024-12-02 08:41] LABS: Alanine Aminotransferase 242 U/L (6-50); Albumin Level 3.7 g/dL (3.5-5.1); Alkaline Phosphatase 104 U/L (38-126); Aspartate Amino Transferase 164 U/L (17-59); Bilirubin,Total 0.5 mg/dL (0.2-1.3); Total Protein 6.9 g/dL (6.3-8.2)
--- NOTE | 2024-12-02 09:25 | PCOTNOTE ---
Patient unavailable for therapy services at this time, Patient having testing done in the room. Will check back later.
[2024-12-02] MEDS: INSULIN GLARGINE (*BKC) 100 UNITS/ML 28 UNITS SUB-Q (10:00)
[2024-12-02] MEDS: ENOXAPARIN 40 MG/0.4 ML SYRINGE SUB-Q (10:03)
[2024-12-02] MEDS: GABAPENTIN 300 MG CAPSULE PO (10:06)
[2024-12-02] MEDS: CHOLECALCIFEROL (VITAMIN D3) 25 MCG (1,000 UNITS) TABLET 50 MCG PO (10:07)
[2024-12-02] MEDS: EMPAGLIFLOZIN 10 MG TABLET PO (10:07)
[2024-12-02] MEDS: ASPIRIN 81 MG CHEWABLE TABLET PO (10:07)
[2024-12-02] MEDS: VENLAFAXINE HCL XR 75 MG CAP.ER.24H PO (10:07)
[2024-12-02 10:08] LABS: Osmolality, Serum 265 mOsmol/kg (280-301)
[2024-12-02 12:00] VITALS: PULSE 97
--- NOTE | 2024-12-02 13:28 | PM.DS ---
DS: Admitting Diagnosis Discharge Date 12/02/2024 Admitting Diagnosis UTI Generalize weakness DS: Discharge Diagnosis Discharge Diagnosis (1) Asymptomatic bradycardia: Code(s): R00.1 - Bradycardia, unspecified Status: Acute (2) Elevated liver enzymes: Code(s): R74.8 - Abnormal levels of other serum enzymes Status: Acute (3) UTI (urinary tract infection): Code(s): N39.0 - Urinary tract infection, site not specified Status: Acute (4) Acute hypoxic respiratory failure: Code(s): J96.01 - Acute respiratory failure with hypoxia Status: Acute (5) Depression: Code(s): F32.9 - Major depressive disorder, single episode, unspecified Status: Acute (6) Insulin dependent type 2 diabetes mellitus: Code(s): E11.9 - Type 2 diabetes mellitus without complications; Z79.4 - jail (current) use of insulin Status: Acute (7) BPH (benign prostatic hyperplasia): Code(s): N40.0 - Benign prostatic hyperplasia without lower urinary tract symptoms Status: Acute Plan 1.Urology follow-up for enlarged prostate-continue his tamsulosin, he will benefit from finastride 2. Cardiology follow-up for bradycardia-metoprolol was stopped, echo was obtained and was more 3. Insulin-dependent type 2 diabetes-Lantus adjusted to 28 units daily, short-acting insulin stopped, Jardiance added-blood sugars well controlled now, he needs monitoring and CGM DS: Summary Hospital Course Hospital Course: Be Summers is a 74-year-old gentleman with insulin-dependent type 2 diabetes, schizophrenia, hypertension, BPH presented with generalized weakness, and shortness of breath. CTPA was negative for consolidation/Infiltrates or PE. UA was positive for UTI. Completed ceftriaxone treatment. He was also bradycardia while he is sleepy. He was asymptomatic. Had crit was 20s-30s, upon awaking heart rate was better in the 60s. Echo was obtained and Cardiology consulted. Echocardiogram was normal, EF 65-70%. He had urinary retention problem and required Roy catheterization. But he did okay with where trail and he was discharged without Roy catheter with Urology follow-up. Time Spent with Patient Time attestation: Total time spent providing and/or coordinating discharge services: Exam Narrative: APPEARANCE: Not on acute distress EYES: EOMI HEENT: Normocephalic, atraumatic, OMM RESPIRATORY: No respiratory distress Clear to auscultation bilaterally with no rhonchi wheezing or rales. CARDIOVASCULAR: RRR, S1 and S2 without murmurs rubs or gallops. ABDOMINAL: Soft, nontender, nondistended, no rebound or guarding MSK: Range of motion is intact. No bony tenderness throughout either leg and no deformities. NEURO: Awake and alert. Following commands, speech normal, no focal deficits SKIN:: Warm, dry. No rashes lesions or abrasions PSYCHIATRIC: Normal affect/mood, DS: Data Data Completed and Pending Labs on day of discharge: Labs from last 24 hours 12/02/24 12/02/24 12/02/24 11:41 07:44 05:29 WBC 6.8 RBC 3.97 L Hgb 12.1 L Hct 36.2 L MCV 91.2 MCH 30.5 MCHC 33.4 RDW 13.1 Plt Count 333 MPV 9.8 Sodium 137 Potassium 3.4 Chloride 101 Carbon Dioxide 29 Anion Gap 7 BUN 12 Creatinine 1.09 Estim Creat Clear Calc 75 Estimated GFR > 60 Glucose 121 H POC Capillary Glucose 131 H 136 H Serum Osmolality Calcium 9.1 Magnesium 1.7 Total Bilirubin 0.5 Direct Bilirubin 0.0 AST 164 H ALT 242 H Alkaline Phosphatase 104 Total Protein 6.9 Albumin 3.7 Urine Osmolality 12/01/24 12/01/24 11/29/24 19:35 16:55 11:26 WBC RBC Hgb Hct MCV MCH MCHC RDW Plt Count MPV Sodium Potassium Chloride Carbon Dioxide Anion Gap BUN Creatinine Estim Creat Clear Calc Estimated GFR Glucose POC Capillary Glucose 219 H 149 H Serum Osmolality Calcium Magnesium Total Bilirubin Direct Bilirubin AST ALT Alkaline Phosphatase Total Protein Albumin Urine Osmolality 153 11/29/24 05:42 WBC RBC Hgb Hct MCV MCH MCHC RDW Plt Count MPV Sodium Potassium Chloride Carbon Dioxide Anion Gap BUN Creatinine Estim Creat Clear Calc Estimated GFR Glucose POC Capillary Glucose Serum Osmolality 265 L Calcium Magnesium Total Bilirubin Direct Bilirubin AST ALT Alkaline Phosphatase Total Protein Albumin Urine Osmolality Preliminary micro results at discharge 11/27/24 01:18 Blood Culture - Preliminary Blood 11/27/24 01:14 Blood Culture - Preliminary Blood 11/27/24 02:12 - Preliminary Urine Clean Catch Gram negative bacilli isolated Discharge Plan Discharge Attending physician on discharge: Trisha Mcgee Consulting providers: Froylan Lane Discharging Clinician: Trisha Mcgee Anticipated Discharge Date/Time: 12/02/24 13:11 Patient Disposition: Home Activity: unlimited Diet: diabetic Patient Instructions: Antibiotic Form Patient Language: Bengali Stand Alone Forms: General Discharge Information Follow-up/Referrals: ignacio noel [Other] Discharge Medications: New insulin glargine [Lantus U-100 Insulin] 100 unit/mL Solution 28 unit subcut DAILY Qty: 3 0RF quetiapine [Seroquel] 100 mg Tablet 100 mg PO HS Qty: 30 0RF Jardiance 10 mg Tablet 10 mg PO DAILY Qty: 30 0RF Continued atorvastatin 80 mg Tablet 40 mg PO QPM venlafaxine 75 mg Capsule,Extended Release 24hr 75 mg PO BID Rx Instructions: Take one capsule by mouth in the morning take two capsules at night tamsulosin 0.4 mg Capsule 0.4 mg PO HS gabapentin 300 mg Capsule 300 mg PO BID Rx Instructions: Take one capsule in the morning and two at night cholecalciferol (vitamin D3) [Vitamin D3] 50 mcg (2,000 unit) Tablet 50 mcg PO DAILY trazodone 100 mg Tablet 100 mg PO HS melatonin 3 mg Tablet 3 mg PO HS amlodipine 10 mg Tablet 10 mg PO HS lisinopril 40 mg Tablet 10 mg PO DAILY aspirin 81 mg capsule 81 mg PO DAILY latanoprost 0.005 % drops 1 drp EACH EYE QPM levothyroxine [Synthroid] 112 mcg tablet 112 mcg PO DAILY Discontinued desmopressin 0.1 mg Tablet 0.1 mg PO BID metoprolol tartrate 25 mg Tablet 12.5 mg PO BID quetiapine 200 mg Tablet 150 mg PO HS insulin glargine [Lantus U-100 Insulin] 100 unit/mL Solution 30 unit SUBCUT DAILY insulin aspart U-100 [Novolog FlexPen U-100 Insulin] 100 unit/mL (3 mL) Insulin Pen 10 unit SUBCUT BIDWMEAL Date of admission: 11/27/24 07:42 Primary Care Provider: UNKNOWN,DOCTOR Admitting Provider: Jenni Aleman Attending physician on admission: Jenni Aleman Condition: Stable
[2024-12-02 14:00] VITALS: BP 140/67; PULSE 78; RESP 18; TEMP 35.8; O2SAT 95
--- NOTE | 2024-12-02 14:51 | P.CDI_ITS ---
<Statement entered by Trisha Mcgee MD - 12/02/24 15:19> This documentation has been reviewed and approved. At this point, Clinically unable to determine whether his UTIs due to Roy catheterizing or not CDI Query Clarification Request Clarification request - UTI has been documented, pt self caths has been documented. Please clarify if UTI is: * due to/associated with self catheterization. * not due to/associated with self catheterization * unable to determine Hospital Course: Be Summers is a 74-year-old gentleman with insulin-dependent type 2 diabetes, schizophrenia, hypertension, BPH presented with generalized weakness, and shortness of breath. CTPA was negative for consolidation/Infiltrates or PE. UA was positive for UTI. Completed ceftriaxone treatment. He was also bradycardia while he is sleepy. He was asymptomatic. Had crit was 20s-30s, upon awaking heart rate was better in the 60s. Echo was obtained and Cardiology consulted. Echocardiogram was normal, EF 65-70%. He had urinary retention problem and required Roy catheterization. But he did okay with where trail and he was discharged without Roy catheter with Urology follow-up. patient has BPH and there concern for possible cystitis and his urine is very positive of UTI, patient does self kristel himself, this may explain fever upon arrival, patient is being treated with ceftriaxone, will follow up on urine culture, there is concern for sepsis as patient had fever, elevated lactic acid, and UTI
--- NOTE | 2024-12-18 09:55 | PCCDE ---
12/18/24: DM Educator courtesy follow up call attempted. Message left.
== END 2024-12-02 14:35 | disposition home or self-care (01) | DRG 871 ==
LOC: ANHED 03:32 → ANH3MEDSUR 05:12
PROVIDERS: Emergency Medicine; Family Medicine; Admitting Provider Internal Medicine; Emergency Provider Physician Assistant; Visit Provider Student in an Organized Health Care Education/Training Program
DX: A41.9 Sepsis, unspecified organism (principal); J96.01 Acute respiratory failure with hypoxia; N39.0 Urinary tract infection, site not specified; E87.20 Acidosis, unspecified; E11.9 Type 2 diabetes mellitus without complications; B96.1 Klebsiella pneumoniae [K. pneumoniae] as the cause of diseases classified elsewhere; I10 Essential (primary) hypertension; N40.1 Benign prostatic hyperplasia with lower urinary tract symptoms; R33.8 Other retention of urine; F20.9 Schizophrenia, unspecified; F12.21 Cannabis dependence, in remission; F17.211 Nicotine dependence, cigarettes, in remission; E66.01 Morbid (severe) obesity due to excess calories; R74.8 Abnormal levels of other serum enzymes; E83.42 Hypomagnesemia; R55 Syncope and collapse; F10.90 Alcohol use, unspecified, uncomplicated; R00.1 Bradycardia, unspecified; Z68.34 Body mass index [BMI] 34.0-34.9, adult; Z86.59 Personal history of other mental and behavioral disorders; Z79.4 Long term (current) use of insulin
CPT/HCPCS: 36415; 36600; 70450; 71046; 71275; 74177; 80048; 80053; 80076; 81001; 82375; 82805; 82948; 83036; 83050; 83605; 83735; 83880; 83930; 83935; 84300; 84484; 85018; 85025; 85027; 85380; 85610; 85730; 86140; 87040; 87086; 87637; 93005; 93306; 96361; 96365; 96367; 96375; 97161; 97166; 97535; 99285; A9270; G0378; G0379; J0456; J0696; J1644; J1650; J1815; J3475; J3480; J7030; J7040; J7050; Q9967